=== PATIENT | female | born 1950 | race Caucasian/White ===

== ENCOUNTER → 2016-10-15 | Outpatient (CLI) | payer OTHER, MEDICARE ==
[~2016-10-15] MED LIST: CALC600T37 PO; LEVO100T7 PO; MAGN400T6 PO; MONT1TAB3 PO; OMEP40CA41 PO; PROP40TA5 PO; SERT50TA PO; TRIATAB3 PO
[2016-10-15 18:11] LABS: HEPATITIS B AB NEG
== END | disposition home or self-care (01) ==
LOC: C.LAB1850 16:29
PROVIDERS: ATTEND Nurse Practitioner Family
DX: Z77.21 Contact with and (suspected) exposure to potentially hazardous body fluids (principal); Z20.7 Contact with and (suspected) exposure to pediculosis, acariasis and other infestations

== ENCOUNTER 2016-11-11 17:44 | Emergency (ER) | payer OTHER, MEDICARE ==
[~2016-11-11] VITALS: Ht 154.9 cm; Wt 81.1 kg
[2016-11-11 17:50] VITALS: TEMP 36.5; Ht 154.9 cm; Wt 81.1 kg
[2016-11-11] MEDS ORDERED: SODIUM CHLORIDE 0.9% 1000ML 1,000 ML IV STA (17:54)
[2016-11-11] MEDS ORDERED: PROP40TA5 PO ×2 (18:10)
[2016-11-11] MEDS ORDERED: LEVO100T7 PO (18:10)
[2016-11-11] MEDS ORDERED: CALC600T37 PO (18:10)
[2016-11-11] MEDS ORDERED: MONT1TAB3 PO (18:10)
[2016-11-11] MEDS ORDERED: OMEP40CA41 PO (18:10)
[2016-11-11] MEDS ORDERED: MAGN400T6 PO (18:10)
[2016-11-11] MEDS ORDERED: TRIATAB3 PO (18:10)
[2016-11-11] MEDS ORDERED: SERT50TA PO (18:10)
[2016-11-11 18:17] LABS: BASO % 0.3 %; BASO ABS # 0.03 K/uL (0-0.2); COMPLETE YES; EOS % 2.6 %; IG% 0.3 %; LYMPH % 28.2 %; LYMPH ABS # 2.88 K/uL (1.2-3.4); MEAN CELL VOLUME 91.7 fL (80-100); MEAN CORPUSCULAR HEMOGLOBIN 30.6 pg (25-34); MEAN CORPUSCULAR HGB CONC 33.3 g/dl (32-36); MEAN PLATELET VOLUME 10.3 fL (7.4-10.4); MONO % 5.6 %; PLATELET COUNT 273 K/uL (130-400); RED BLOOD COUNT 4.58 M/uL (4.2-5.4); WHITE BLOOD COUNT 10.23 K/uL (4.8-10.8)
[2016-11-11 18:26] LABS: URINE APPEARANCE CLEAR (CLEAR); URINE BILIRUBIN NEG (NEG); URINE COLOR YELLOW; URINE NITRITE NEG (NEG); URINE SPECIFIC GRAVITY 1.018 (1.000-1.030); UROBILINOGEN NEG (NEG); ZZUR CULT IF INDIC CLEAN CATCH NO
[2016-11-11 18:29] LABS: MANUAL MICROSCOPIC REQUIRED? NO; REVIEW REQ? NO
[2016-11-11 18:34] LABS: ALT/SGPT 32 U/L (12-78); AST/SGOT 19 U/L (15-37); BLOOD UREA NITROGEN 15 mg/dl (7-18); BUN/CREATININE RATIO 17.5 (10-20); CALCIUM 8.8 mg/dl (8.5-10.1); CARBON DIOXIDE 31 mmol/L (21-32); CHLORIDE 103 mmol/L (98-107); CREATININE 0.84 mg/dl (0.60-1.20); GLUCOSE 112 mg/dl (70-99); POTASSIUM 3.8 mmol/L (3.5-5.1); SODIUM 141 mmol/L (136-145)
[2016-11-11 18:37] LABS: ALKALINE PHOSPHATASE 88 U/L (45-117)
[2016-11-11] MEDS ORDERED: OPTIRAY 320 IV PRN (20:00)
--- NOTE | 2016-11-11 20:10 | DIAGNOSTIC IMAGING REPORT ---
ABDOMEN AND PELVIS CT WITH IV CONTRAST CT DOSE: 655.79 mGy.cm HISTORY: LUQ pain, diarrhea TECHNIQUE: Multiaxial CT images of the abdomen and pelvis were performed following the use of intravenous contrast. COMPARISON STUDY: None. FINDINGS: The lung bases are clear. No pneumoperitoneum. No pneumatosis. Small hiatus hernia. Hepatic steatosis. The gallbladder is not identified and is likely surgically absent. The pancreas, spleen, adrenal glands, and kidneys are unremarkable. No hydronephrosis. Normal bladder. The uterus is surgically absent. No bowel wall thickening or obstruction. The appendix is not identified and is likely surgically absent. IMPRESSION: 1. No bowel wall thickening or obstruction. 2. Hepatic steatosis. 3. Postoperative changes as described above. 4. Small hiatus hernia. Electronically signed by: Reji Evans M.D. 11/11/2016 8:09 PM Dictated Date/Time: 11/11/2016 8:04 PM
[2016-11-11 20:39] VITALS: BP 120/65; PULSE 65; O2SAT 98
--- NOTE | 2016-11-11 21:52 | EMERGENCY ROOM VISIT NOTE ---
History Report prepared by Kalee: Brooke Figueroa Under the Supervision of: Dr. Panda Adan M.D. First contact with patient: 17:54 Chief Complaint: ABDOMINAL PAIN Stated Complaint: LEFT ABD PAIN History of Present Illness The patient is a 66 year old female who presents to the Emergency Room with complaints of constant LUQ abdominal pain beginning today. The patient states that she has been having this left sided abdominal pain intermittently over the last few months. She reports that when it started she was feeling nauseous every morning and after following up with her PCP she went to see a waiter/waitress head. She notes that she they have not been able to figure out why she is having pain and she has not had any CT scans or MRI's. She notes that movement, palpation, and deep breathing worsens her pain in the LUQ. No chest pain with these maneuvers. She complains of diarrhea, bloating, nausea, and tiredness. Pt denies LOC, headache, fevers, chills, diaphoresis, visual changes, neck pain, chest pain, vomiting, abdominal pain, back pain, melena, hematochezia, urinary symptoms, numbness, weakness, lymphadenopathy, rash, or other complaints. The patient rates her pain as a 5/10 in severity. She notes a cholecystectomy, hysterectomy, thyroidectomy, and suspected appendectomy. She states that she had a colonoscopy 1 year ago that was normal. Source of History: patient Onset: today Position: abdomen (left) Timing: constant Modifying Factors (Worsening): breathing Review of Systems See HPI for pertinent positives and negatives. A total of ten systems were reviewed and were otherwise negative. Past Medical & Surgical Medical Problems: (1) Bronchitis Surgical Problems: (1) H/O thyroidectomy (2) S/P appendectomy (3) S/P cholecystectomy (4) S/P hysterectomy Family History No pertinent family history stated. Social History Smoking Status: Never Smoker Marital Status: Housing Status: lives with significant other Occupation Status: employed Current/Historical Medications Scheduled Calcium (Calcium), 1,200 MG PO DAILY Levothyroxine Sodium (Levothyroxine Sodium), 100 MCG PO DAILY Magnesium Oxide (Mag-Ox), 800 MG PO DAILY Montelukast Sodium (Singulair), 10 MG PO DAILY Omeprazole (Prilosec), 40 MG PO DAILY Propranolol Hcl (Propranolol Hcl), 40 TAB PO QPM Propranolol Hcl (Propranolol Hcl), 80 MG PO QAM Sertraline (Zoloft), 50 MG PO Q2D Triamterene/Hctz (Triamterene/Hctz 37.5-25MG), 1 TAB PO DAILY Allergies Coded Allergies: No Known Allergies (Unverified , 11/11/16) Physical Exam Vital Signs Date Time Temp Pulse Resp B/P (MAP) Pulse Ox O2 Delivery O2 Flow Rate FiO2 11/11/16 20:39 65 16 120/65 98 11/11/16 20:00 68 16 114/67 98 Room Air 11/11/16 19:38 62 11/11/16 17:50 36.5 60 18 119/74 96 Room Air Physical Exam GENERAL: Awake, alert, well-appearing, in no distress HENT: Normocephalic, atraumatic. Oropharynx unremarkable. EYES: Normal conjunctiva. Sclera non-icteric. NECK: Supple. No nuchal rigidity. FROM. No JVD. RESPIRATORY: Clear to auscultation. CARDIAC: Regular rate, normal rhythm. Extremities warm and well perfused. Pulses equal. ABDOMEN: Soft, non-distended. No tenderness to palpation. No rebound or guarding. No masses. RECTAL: Deferred. MUSCULOSKELETAL: Chest examination reveals no tenderness. The back is symmetrical on inspection without obvious abnormality. There is no CVA tenderness to palpation. No joint edema. LUQ tenderness. LOWER EXTREMITIES: Calves are equal size bilaterally and non-tender. No edema. No discoloration. NEURO: Normal sensorium. No sensory or motor deficits noted. SKIN: No rash or jaundice noted. Medical Decision & Procedures ER Provider Diagnostic Interpretation: Radiology results as stated below per my review and radiologist interpretation: ABDOMEN AND PELVIS CT WITH IV CONTRAST FINDINGS: The lung bases are clear. No pneumoperitoneum. No pneumatosis. Small hiatus hernia. Hepatic steatosis. The gallbladder is not identified and is likely surgically absent. The pancreas, spleen, adrenal glands, and kidneys are unremarkable. No hydronephrosis. Normal bladder. The uterus is surgically absent. No bowel wall thickening or obstruction. The appendix is not identified and is likely surgically absent. IMPRESSION: 1. No bowel wall thickening or obstruction. 2. Hepatic steatosis. 3. Postoperative changes as described above. 4. Small hiatus hernia. Electronically signed by: Reji Evans M.D. 11/11/2016 8:09 PM Dictated Date/Time: 11/11/2016 8:04 PM Laboratory Results 11/11/16 18:10 Red Blood Count 4.58, Mean Corpuscular Volume 91.7, Mean Corpuscular Hemoglobin 30.6, Mean Corpuscular Hemoglobin Concent 33.3, Mean Platelet Volume 10.3, Neutrophils (%) (Auto) 63.0, Lymphocytes (%) (Auto) 28.2, Monocytes (%) (Auto) 5.6, Eosinophils (%) (Auto) 2.6, Basophils (%) (Auto) 0.3, Neutrophils # (Auto) 6.45, Lymphocytes # (Auto) 2.88, Monocytes # (Auto) 0.57, Eosinophils # (Auto) 0.27, Basophils # (Auto) 0.03 11/11/16 18:10 Test 11/11/16 18:00 11/11/16 18:10 Urine Color YELLOW Urine Appearance CLEAR (CLEAR) Urine pH 6.0 (4.5-7.5) Urine Specific [place]ham 1.018 (1.000-1.030) Urine Protein NEG (NEG) Urine Glucose (UA) NEG (NEG) Urine Ketones NEG (NEG) Urine Occult Blood NEG (NEG) Urine Nitrite NEG (NEG) Urine Bilirubin NEG (NEG) Urine Urobilinogen NEG (NEG) Urine Leukocyte Esterase NEG (NEG) White Blood Count 10.23 K/uL (4.8-10.8) Red Blood Count 4.58 M/uL (4.2-5.4) Hemoglobin 14.0 g/dL (12.0-16.0) Hematocrit 42.0 % (37-47) Mean Corpuscular Volume 91.7 fL (80-100) Mean Corpuscular Hemoglobin 30.6 pg (25-34) Mean Corpuscular Hemoglobin Concent 33.3 g/dl (32-36) Platelet Count 273 K/uL (130-400) Mean Platelet Volume 10.3 fL (7.4-10.4) Neutrophils (%) (Auto) 63.0 % Lymphocytes (%) (Auto) 28.2 % Monocytes (%) (Auto) 5.6 % Eosinophils (%) (Auto) 2.6 % Basophils (%) (Auto) 0.3 % Neutrophils # (Auto) 6.45 K/uL (1.4-6.5) Lymphocytes # (Auto) 2.88 K/uL (1.2-3.4) Monocytes # (Auto) 0.57 K/uL (0.11-0.59) Eosinophils # (Auto) 0.27 K/uL (0-0.5) Basophils # (Auto) 0.03 K/uL (0-0.2) RDW Standard Deviation 43.4 fL (36.4-46.3) RDW Coefficient of Variation 13.0 % (11.5-14.5) Immature Granulocyte % (Auto) 0.3 % Immature Granulocyte # (Auto) 0.03 K/uL (0.00-0.02) Anion Gap 7.0 mmol/L (3-11) Est Creatinine Clear Calc Drug Dose 64.4 ml/min Estimated GFR () 84.5 Estimated GFR (Non- 72.9 BUN/Creatinine Ratio 17.5 (10-20) Calcium Level 8.8 mg/dl (8.5-10.1) Total Bilirubin 0.4 mg/dl (0.2-1) Direct Bilirubin < 0.1 mg/dl (0-0.2) Aspartate Amino Transf (AST/SGOT) 19 U/L (15-37) Alanine Aminotransferase (ALT/SGPT) 32 U/L (12-78) Alkaline Phosphatase 88 U/L (45-117) Total Protein 8.1 gm/dl (6.4-8.2) Albumin 3.4 gm/dl (3.4-5.0) Lipase 263 U/L (73-393) Laboratory results reviewed by me Medications Administered Medications (Trade) Dose Ordered Sig/Diana Route Start Time Stop Time Status Last Admin Dose Admin Sodium Chloride 1,000 ml @ 125 mls/hr Q8H STAT IV 11/11/16 17:54 11/11/16 20:46 DC 11/11/16 17:54 125 MLS/HR ED Course 1751: The patient was evaluated in room C3. A complete history and physical exam was performed. 1753: Sodium Chloride 1000 ml @ 125 mls/hr IV. 1919: I reevaluated the patient. She is doing well. 2020: I reevaluated and updated the patient. 2028: I reevaluated the patient. Discussed results and discharge instructions: She verbalized understanding and agreement. The patient is ready for discharge. Medical Decision Medication Reconciliation: I attest that I have personally reviewed the patient' s current medication list Blood pressure screening: Patient was found to have normal blood pressure on screening and does not require follow-up. Triage Nursing notes reviewed. The patient's presentation and history were concerning for abdominal pain Etiologies such as diverticulitis, obstruction, inflammatory bowel disease, renal colic, PUD, biliary pathology, pancreatitis, mesenteric ischemia, aortic pathology, infections, genitourinary, UTI, perforated viscus, appendicitis, pulmonary sources, cardiac sources, as well as others were entertained. The patient was evaluated. She declined analgesia. Her chest examination was unremarkable. She had tenderness that was easily reproducible in the left upper quadrant of her abdomen. She did not have costal margin tenderness. The patient underwent blood work and imaging. Her CBC, chemistry panel, LFTs, lipase, and urinalysis were normal. The patient had an unremarkable CT scan of the abdomen and pelvis with IV contrast. There is no obvious cause for the patient's pain. It may be musculoskeletal. She does not have any chest or cardiac symptoms. She has had this for many months. She has seen gastroenterology but they have not done a colonoscopy since this pain initiated. She did have some diarrhea. I did discuss contacting her waiter/waitress head again did discuss that issue. She has a pending appointment with her new primary physician at [facility]. She will need close follow-up. If she worsens in any way she will come back. The patient did decline any prescription management here. I gave my usual and customary discussion regarding this issue. By the evaluation outlined above other emergent etiologies such as those listed in the differential, as well as others, were deemed relatively unlikely. The patient was educated about the findings as listed above. All questions were answered and the patient was pleased with the treatment. Return instructions were outlined and the patient was discharged in stable condition. The patient was referred to her GI and PCP for follow-up for a recheck of the current condition. Impression Primary Impression: LUQ abdominal pain Scribe Attestation The scribe's documentation has been prepared under my direction and personally reviewed by me in its entirety. I confirm that the note above accurately reflects all work, treatment, procedures, and medical decision making performed by me. Departure Information Dispostion Home / Self-Care Referrals No Doctor, Assigned (PCP) Forms HOME CARE DOCUMENTATION FORM, IMPORTANT VISIT INFORMATION Patient Instructions My [facility] Additional Instructions ABDOMINAL PAIN INSTRUCTIONS: Ibuprofen(Motrin, Advil) may be used for fever or pain. Use 600mg every six hours as needed. Take with food. Avoid using more than 2400mg in a 24 hour period. Do not use 2400mg per day for more than three consecutive days without physician direction. Prolonged inappropriate use can lead to stomach upset or ulcers. (AND/OR) Acetaminophen(Tylenol) may be used for fever or pain. Use 1000mg every six hours as needed. Avoid using more than 4000mg in a 24 hour period. Rest and drink plenty of fluids as tolerated. Slow sips of water or sports drinks are recommended instead of large amounts all at once. Continue current medications. Once your stomach is settled start with a clear liquid diet (jello, soup broth, etc.) and then advance as tolerated. You should avoid full, heavy meals for about 24 hrs from the time your symptoms resolved. Return to the ER immediately for worsening or persistent abdominal pain, vomiting, fevers, chest pains, difficulty breathing, black or bloody stools, worsening of your condition, or as needed. Follow up with your primary physician in 2-3 days for a recheck of your current condition.
== END 2016-11-11 20:39 | disposition home or self-care (01) ==
LOC: C.EDB 17:45 → C.EDC 20:39
DX: R10.12 Left upper quadrant pain (principal)

== ENCOUNTER → 2016-12-14 | Outpatient (CLI) | payer OTHER, MEDICARE ==
--- NOTE | 2016-12-14 08:15 | DIAGNOSTIC IMAGING REPORT ---
THYROID ULTRASOUND HISTORY: None Fatigue, hx OF THYROID NODULE COMPARISON: None. FINDINGS: Right lobe: Maximum dimension 3.0 cm. Heterogeneous internal architecture. No significant nodularity. Left lobe: Prior left thyroidectomy. Small benign-appearing left-sided lymph node measuring 1.5 x 0.7 cm. Isthmus: Negative IMPRESSION: Negative study status post left thyroidectomy Electronically signed by: Geremias Srinivasan M.D. 12/14/2016 8:14 AM Dictated Date/Time: 12/14/2016 8:11 AM
== END | disposition home or self-care (01) ==
LOC: C.ULTR 07:43
PROVIDERS: ATTEND Family Medicine
DX: R53.83 Other fatigue (principal); E04.1 Nontoxic single thyroid nodule

== ENCOUNTER → 2017-04-18 | Outpatient (CLI) | payer OTHER, MEDICARE ==
[~2017-04-18] MED LIST changes: +OPTIRAY 320 IV PRN
--- NOTE | 2017-04-18 10:05 | DIAGNOSTIC IMAGING REPORT ---
THORACIC SPINE 3 VIEWS ROUTINE HISTORY: Pain AB PAIN COMPARISON: None. FINDINGS: Moderate scoliosis. Moderate degenerative disc changes throughout. Moderate sclerosis vertebral endplates with moderate anterior osteophytic formation. No evidence for compression deformity. IMPRESSION: Degenerative change. Mild scoliosis. No acute process. The above report was generated using voice recognition software. It may contain grammatical, syntax or spelling errors. Electronically signed by: Geremias Srinivasan M.D. 04/18/2017 10:04 AM Dictated Date/Time: 04/18/2017 10:03 AM
--- NOTE | 2017-04-18 10:05 | DIAGNOSTIC IMAGING REPORT ---
ABD WITH IV CONTRAST ONLY (CT) HISTORY: 67 years-old Female presents with acute left upper quadrant abdominal pain. History of prior appendectomy and cholecystectomy COMPARISON: CT 11/11/2016 TECHNIQUE: Multiple axial CT images of the abdomen were obtained following the intravenous administration of 92 mL Optiray 320. A dose lowering technique was used consistent with the principals of ARANZA. FINDINGS: Mild linear subsegmental bibasilar opacities suggest atelectasis or scarring. Unchanged pleural-based 3 mm nodule of the lateral basal segment left lower lobe is likely benign. No pneumoperitoneum. Image inferior cardiac chambers demonstrate no acute abnormality. Coronary arterial calcifications are present. There is suggested fatty infiltration of the liver. Spleen is upper limits of normal at 12.5 cm. Pancreas and right adrenal gland are unremarkable. There is mild thickening of the left adrenal gland again seen suggesting hyperplasia. Prior cholecystectomy. No intrahepatic biliary ductal dilation. Mild multifocal cortical scarring of the left kidney. 4 mm low attenuating lesion of the superior pole left kidney is too small to characterize however suggests a renal cyst. No renal calculi or hydronephrosis. Moderate mixed plaquing of the abdominal aorta without aneurysm. No bulky adenopathy. There is no bowel obstruction or focal bowel wall thickening. Small sliding-type hiatal hernia. Soft tissues are unremarkable. Bones appear intact. Bones are mildly demineralized. Advanced facet arthrosis of the lower lumbar spine is noted. IMPRESSION: 1. No acute intra-abdominal abnormality identified. No bowel obstruction. 2. Prior cholecystectomy. 3. Small sliding-type hiatal hernia. The above report was generated using voice recognition software. It may contain grammatical, syntax or spelling errors. Electronically signed by: Erik Isaacs M.D. 04/18/2017 10:04 AM Dictated Date/Time: 04/18/2017 9:51 AM
== END | disposition home or self-care (01) ==
LOC: C.CTS 09:03
PROVIDERS: ATTEND Internal Medicine Gastroenterology
DX: R10.12 Left upper quadrant pain (principal); K44.9 Diaphragmatic hernia without obstruction or gangrene; Z90.49 Acquired absence of other specified parts of digestive tract; M41.9 Scoliosis, unspecified

== ENCOUNTER 2019-12-10 21:03 | Inpatient (IN) ==
--- OUTSIDE RECORDS SUMMARY | 2019-12-10 21:06 | External Medical Summary | Continuity of Care Document ---
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 Refills: 0 Singulair 10 MG Oral Tablet; TAKE 1 TABLET DAILY DIRECTED . Refills: 0 Calcium 600 MG Oral Tablet; Take 2 tablets daily Refills: 0 Triamterene-HCTZ 37.5-25 MG Oral Tablet; TAKE 1 TABLET DAILY . Refills: 0 PriLOSEC 40 MG CPDR; TAKE 1 CAPSULE DAILY. Refills: 0 Levoxyl 100 MCG Oral Tablet; TAKE 1 TABLET DAILY. Refills: 0 Propranolol HCl - 40 MG Oral Tablet; daily Start: 13-Feb-2017 Refills: 0 Magnesium Oxide 400 MG Oral Tablet; TAKE 1 TABLET TWICE VEL Y. Start: 13-Feb-2017 Refills: 0 Procedures History of thyroid surgery Status: Compl eted History of hysterectomy Status: Complete d History of gallbladder surgery Status: C ompleted History of appendectomy Status: Complete d Immunizations Immunizations not documented Family History Sister Family history of malignant neoplasm of breast (V16.3) (Z80. 3) Status: Active Social History - Smoking Status Never smoked tobacco Plan of Treatment Planned Observations Planned Goals not documented Results No Known Results Results not documented Encounters Appointment; Med SC5, Nursing Station 19-May-2018 7:15 Encounter Diagnosis: Problem not documented
--- OUTSIDE RECORDS SUMMARY | 2019-12-10 21:07 | External Medical Summary | Continuity of Care Document ---
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
[2019-12-10] MEDS ORDERED: ONDANSETRON INJ 2 MG/ML 2 ML VIAL IV STA (21:20)
--- NOTE | 2019-12-10 21:24 | Emergency Department Note ---
Impression & Plan Closed fracture of right hip, Contusion of right shoulder, Fall ED Provider Note NAME: CHARO VALDEZ AGE: 69 SEX: F : 1950 ARRIVES VIA: Walk-In INFORMANT: [Patient] ED PROVIDER(S): [Aman Clemente MD] CHIEF COMPLAINT: Right hip pain, right shoulder pain HISTORY OF PRESENT ILLNESS: The patient is a 69-year-old female who states that just about an hour ago she was pulled down by her dog onto her right side. She has severe pain in the right hip and cannot walk on the right leg. She also has some mild pain in the area of the right lateral shoulder. There was no loss of consciousness. She did not strike her head. There is no headache or neck pain or chest pain. No shortness of breath or abdominal pain. The patient has been in baseline health. She has not had recent fevers, chills, congestion. She is very concerned her hip is broken. She states it hurts to extend her hip. She feels better with the hip flexed. REVIEW OF SYSTEMS: See HPI for pertinent positives and negatives. A total of ten systems were reviewed and were otherwise negative. PMHx/PSHx: See Below SOCIAL HISTORY: See Below. PHYSICAL EXAM: GENERAL: Patient is in moderate distress from pain. HEENT: No acute trauma, normocephalic atraumatic, mucous membranes moist, no nasal congestion, no scleral icterus. NECK: No stridor, no adenopathy, no meningismus, trachea is midline. LUNGS: Clear to auscultation bilaterally, no wheeze, no rhonchi, breath sounds equal. HEART: Without murmurs gallops or rubs, regular rate and rhythm. ABDOMEN: Soft, nontender, bowel sounds positive, no hernias, no peritonitis. EXTREMITIES: The right shoulder does not appear to be dislocated. She is tender over the anterior aspect of the right shoulder. No significant pain to move the shoulder joint. The right elbow has an abrasion posteriorly but there is no joint effusion, no pain to move the right elbow joint. There is no evidence for right upper extremity neurovascular compromise. Patient has her right hip flexed. She is painful to palpate the lateral aspect of the hip. There is pain to move the right hip. There is no gross deformity clinically. No evidence for neurovascular compromise in the right lower extremity. NEUROLOGIC: Oriented x 3, no acute motor or sensory deficits, no focal weakness. SKIN: No rash, no jaundice, no diaphoresis. DIFFERENTIAL DIAGNOSIS: Muscular strain, fracture, dislocation, DVT, joint effusion, infection, soft tissue injury, vascular compromise, as well as other pathologies. EMERGENCY DEPARTMENT COURSE/PROCEDURES: ECG: Indication was hip fracture. The EKG shows a normal sinus rhythm with a rate of 75. There is no acute ischemia. No ST elevation or PVCs. The QTc is 435 Continuous Cardiac Monitoring: An order was placed for continuous cardiac monitoring. The monitor shows a rate of 74 with normal sinus rhythm. MEDICAL DECISION MAKING: There is no leukocytosis or concerning anemia. There is no coagulopathy. No significant electrolyte abnormality or kidney failure. Right shoulder film does not show any evidence for dislocation or fracture. Right hip and pelvis films show a subcapital right hip fracture, no pelvis fracture. ECG shows a sinus rhythm, no acute ischemia. On exam, the patient did not have any evidence for right lower extremity neurovascular compromise. Patient received IV morphine for pain, IV Zofran for nausea, she is currently resting comfortably. I did speak to orthopedics. The patient will be seen by them in the morning. I spoke to the patient and case management. Hospitalization is warranted. The on-call hospitalist has been consulted. Of note, I suspect the right shoulder is contused. Clinically, there is no evidence for injury to the head, neck, chest or abdomen. Past Med/Surg History Medical History Hypothyroid Surgical History S/P appendectomy (Resolved) Social History Preferred Language: Stateless Feels Safe at Home: Yes Smoking Status: Never smoker Allergies Allergies Allergy/AdvReac Type Severity Reaction Status Date / Time No Known Allergies Allergy Verified 12/10/19 21:36 Home Meds Home Medications Medication Instructions Recorded Confirmed calcium carbonate-vitamin D3 2 tab PO DAILY 12/10/19 12/10/19 [Calcium 600 + D(3)] levothyroxine 100 mcg PO DAILY 12/10/19 12/10/19 magnesium oxide 800 mg PO DAILY 12/10/19 12/10/19 omeprazole 40 mg PO DAILY 12/10/19 12/10/19 propranolol See Rx Instructions .ROUTE .COMPLEX 12/10/19 12/10/19 sertraline 50 mg PO Q OTHER DAY 12/10/19 12/10/19 triamterene-hydrochlorothiazid 1 tab PO DAILY 12/10/19 12/10/19 zonisamide 50 mg PO HS 12/10/19 12/10/19 Results & Data (ED) Vital Signs Vital Signs - 24 hr 12/10/19 21:15 12/10/19 23:00 Temperature 36.7 C Temperature Source Oral Pulse Rate 75 Pulse Rate [Finger] 74 Pulse Rhythm [Finger] Regular Pulse Strength [Finger] Normal Respiratory Rate 16 20 Respiratory Effort / Characteristics Non-Labored Spontaneous Respiratory Depth Normal Respiratory Pattern Regular Blood Pressure 132/74 Blood Pressure [Left Arm] 123/64 Blood Pressure Mean 93 Blood Pressure Mean [Left Arm] 83 Blood Pressure Position [Left Arm] Lying Pulse Oximetry 95 91 Oxygen Delivery Method Room Air Room Air Sepsis Recent Fever Within 48 Hours No Sepsis New/Unexplained Change in Mental Status No Sepsis Action Taken by Nursing No Action Required Home Medications Current Medication List: was personally reviewed by me Laboratory Data Attestation: I reviewed the patient's lab results. Result diagrams: 12/10/19 21:25 12/10/19 21:25 Lab Results 12/10/19 12/10/19 12/10/19 Range/Units 21:25 21:25 21:25 WBC 9.58 (4.8-10.8) K/uL RBC 4.34 (4.2-5.4) M/uL Hgb 13.3 (12.0-16.0) g/dL Hct 39.1 (37-47) % MCV 90.1 (80-100) fL MCH 30.6 (25-34) pg MCHC 34.0 (32-36) g/dL RDW Std Deviation 41.8 (36.4-46.3) fL RDW Coeff of Remi 12.7 (11.5-14.5) % Plt Count 250 (130-400) K/uL MPV 10.6 H (7.4-10.4) fL Immature Gran % (Auto) 0.3 % Neut % (Auto) 66.0 % Lymph % (Auto) 26.1 % [place] % (Auto) 5.4 % Eos % (Auto) 1.7 % Baso % (Auto) 0.5 % Neut # (Auto) 6.32 (1.4-6.5) K/uL Lymph # (Auto) 2.50 (1.2-3.4) K/uL [place] # (Auto) 0.52 (0.11-0.59) K/uL Eos # (Auto) 0.16 (0-0.5) K/uL Baso # (Auto) 0.05 (0-0.2) K/uL Immature Gran # (Auto) 0.03 H (0.00-0.02) K/uL PT 10.6 (9.0-12.0) Seconds INR 1.0 (0.9-1.1) APTT 28.2 (21.0-31.0) Seconds PTT Ratio 1.0 Sodium 140 (136-145) mmol/L Potassium 3.5 (3.5-5.1) mmol/L Chloride 106 (98-107) mmol/L Carbon Dioxide 27 (21-32) mmol/L Anion Gap 6.0 (3-11) BUN 24 H (7-18) mg/dl Creatinine 1.03 (0.6-1.2) mg/dl Est Cr Clr Drug Dosing 49.4 ml/min Est GFR ( Amer) 64.7 Est GFR (Non-Af Amer) 55.8 BUN/Creatinine Ratio 23.4 H (10-20) Glucose 130 H (70-99) mg/dl Calcium 9.4 (8.5-10.1) mg/dl Administered Medications Morphine Sulfate (Morphine Sulfate) 4 mg IV Q30M PRN PRN Reason: Severe Pain (Rating 7,8,9,10) Stop: 12/24/19 21:17 Last Admin: 12/10/19 22:10 Dose: 4 mg Documented by: [id number] Admin: 12/10/19 21:31 Dose: 4 mg Documented by: [id number] Discontinued Medications Ondansetron HCl (Zofran) 4 mg IV NOW STA Stop: 12/10/19 21:21 Last Admin: 12/10/19 21:31 Dose: 4 mg Documented by: [id number] Imaging Data Attestation: I personally reviewed and interpreted this imaging study as foll ows: My Impression: Right shoulder film: There is no fracture or dislocation by my reading. Right hip and pelvis film: There is a subcapital right hip fracture. No pelvis fracture. No hip dislocation. Blood Pressure Blood Pressure Findings: Elevated blood pressure Blood Pressure Disposition: further management by hospitalist Head Trauma GCS Score: 15 Discharge Plan Visit Data Chief Complaint: Fall Stated Complaint: FALL, MAY HAVE BROKEN HIP ED Provider: Aman Clemente Discharge Problem: Closed fracture of right hip, Contusion of right shoulder, Fall Patient Disposition: Admitted As Inpatient Condition: Good Forms Stand Alone Forms: My [facility] [employer] Prescriptions Prescriptions: No Action omeprazole 40 mg Capsule,Delayed Release(Dr/Ec) 40 mg PO DAILY RF: 0 levothyroxine 100 mcg Tablet 100 mcg PO DAILY RF: 0 propranolol 40 mg Tablet See Rx Instructions .ROUTE .COMPLEX RF: 0 sertraline 25 mg Tablet 50 mg PO Q OTHER DAY RF: 0 triamterene-hydrochlorothiazid 37.5-25 mg Tablet 1 tab PO DAILY RF: 0 zonisamide 25 mg Capsule 50 mg PO HS RF: 0 calcium carbonate-vitamin D3 [Calcium 600 + D(3)] 600 mg(1,500mg) -400 unit Tablet 2 tab PO DAILY RF: 0 magnesium oxide 400 mg magnesium Tablet 800 mg PO DAILY RF: 0 Referrals Referrals: Steven Way [Primary Care Provider] - Discharge Problem: Closed fracture of right hip Qualifiers: Encounter type: initial encounter Qualified Code(s): S72.001A - Fracture of unspecified part of neck of right femur, initial encounter for closed fracture Contusion of right shoulder Qualifiers: Encounter type: initial encounter Qualified Code(s): S40.011A - Contusion of right shoulder, initial encounter Fall Qualifiers: Encounter type: initial encounter Qualified Code(s): W19.XXXA - Unspecified fall, initial encounter
[2019-12-10] MEDS: MoRPHine SULFATE 4 MG/ML 1 ML CARP\\VIAL IV PRN ×3 (21:31→23:28)
[2019-12-10 21:36] LABS: Basophils # (auto) 0.05 K/uL (0-0.2); Basophils % (auto) 0.5 %; Eosinophils # (auto) 0.16 K/uL (0-0.5); Eosinophils % (auto) 1.7 %; Hematocrit (blood only) 39.1 % (37-47); Hemoglobin 13.3 g/dL (12.0-16.0); Immature Granulocytes # (auto) 0.03 K/uL (0.00-0.02); Immature Granulocytes % (auto) 0.3 %; Lymphocytes % (auto) 26.1 %; Mean Corpuscular Hemoglobin 30.6 pg (25-34); Mean Corpuscular Volume 90.1 fL (80-100); Mean Platelet Volume 10.6 fL (7.4-10.4); Monocytes # (auto) 0.52 K/uL (0.11-0.59); Monocytes % (auto) 5.4 %; Neutrophils # (auto) 6.32 K/uL (1.4-6.5); Platelet Count 250 K/uL (130-400); RDW Coefficient of Variation 12.7 % (11.5-14.5); RDW Standard Deviation 41.8 fL (36.4-46.3); Red Blood Count 4.34 M/uL (4.2-5.4); White Blood Count 9.58 K/uL (4.8-10.8)
[2019-12-10 21:47] LABS: Partial Thromboplastin Time 28.2 Seconds (21.0-31.0); Prothrombin Time 10.6 Seconds (9.0-12.0)
[2019-12-10 21:51] LABS: BUN Creatinine Ratio 23.4 (10-20); Calcium 9.4 mg/dl (8.5-10.1); Creatinine Clr Calc Pharmacy 49.4 ml/min; Est GFR (African American) 64.7; Est GFR (Non-African American) 55.8; Potassium 3.5 mmol/L (3.5-5.1)
[2019-12-10] MEDS ORDERED: BACLOFEN 10 MG TAB PO ONE (23:35)
[2019-12-10] MEDS: BACLOFEN 10 MG TAB PO SCH (23:40)
--- NOTE | 2019-12-10 23:43 | History & Physical Report ---
Date of Service December 10, 2019 Assessment & Plan (1) Closed fracture of right hip: - NPO at midnight - pain control regimen: - 650 mg Tylenol PO HIMANSHU - 2 mg Morphine IV Q2H PRN mod/severe pain - 5 mg Roxicodone IR PO Q4H PRN mod/severe pain - Zofran for nausea - Baclofen 10 mg BID for muscle spasms - bowel regimen with milk of magnesia, senna, docusate, miralax - follows with [facility] in [place]; Dr. Dent for [facility] Ortho consulted DVT ppx: lovenox FEN/GI: NPO at [place], LR at [facility] Dispo: Med/Surg Code Status: Full Code History of Present Illness 69-year-old otherwise healthy female who presents the emergency department today after having fallen at home. She was trying to edd down her [place] dog who weighs 130 pounds and states that "the [place] won". She tripped and landed on her right hip in the grass and upon trying to move and get up immediately had sharp stabbing pain in the right hip and was unable to get up from there. She denies any distal numbness or tingling describes all of the pain as being lo cated in the right inguinal region. She says that she lays still and does not move the pain is manageable however as soon as she tries to move her thyroid and portion of her legs the pain returns. She denies any nausea or vomiting and says her pain is currently well controlled having gotten 4 mg of morphine IV. Primary Care Provider: Steven Way Allergies Allergy/AdvReac Type Severity Reaction Status Date / Time No Known Allergies Allergy Verified 12/10/19 21:36 Home Medications Home Medications Medication Instructions Recorded Confirmed Type calcium carbonate-vitamin D3 2 tab PO DAILY 12/10/19 12/10/19 History [Calcium 600 + D(3)] levothyroxine 100 mcg PO DAILY 12/10/19 12/10/19 History magnesium oxide 800 mg PO DAILY 12/10/19 12/10/19 History omeprazole 40 mg PO DAILY 12/10/19 12/10/19 History propranolol See Rx Instructions .ROUTE .COMPLEX 12/10/19 12/10/19 History sertraline 50 mg PO Q OTHER DAY 12/10/19 12/10/19 History triamterene-hydrochlorothiazid 1 tab PO DAILY 12/10/19 12/10/19 History zonisamide 50 mg PO HS 12/10/19 12/10/19 History Past Med/Surg History Medical History (Updated 12/11/19 @ 14:22 by Rachael Ward PA-C) GERD (gastroesophageal reflux disease) HTN (hypertension) Hypothyroid Surgical History (Updated 12/11/19 @ 10:23 by Moses Pham MD) H/O thyroidectomy (Resolved) S/P appendectomy (Resolved) S/P cholecystectomy (Resolved) S/P hysterectomy (Resolved) Social History Preferred Language: Mauritanian Communication Ability: Effective Beliefs That Will Affect Care: None marital status: Current Living Situation: Spouse Other Information That Helps Us Care for You: No Feels Safe at Home: Yes Safety Concerns: Feels Safe At This Time Smoking Status: Never smoker Hx Alcohol Use: No Hx Substance Use: No Review of Systems Constitutional: no fever, no chills, no body aches and no fatigue Respiratory: no cough and no dyspnea Cardiovascular: no chest pain, no dyspnea and no edema Gastrointestinal: no abdominal pain, no nausea, no vomiting, no constipation, no diarrhea/loose stools and no fecal incontinence Genitourinary: no dysuria and no urinary incontinence Musculoskeletal: + joint pain and + limited range of motion; no back pain, no deformity and no swelling Neurologic: no localized weakness, no generalized weakness, no loss of sensation, no tingling, no numbness and no radiating pain Physical Exam Constitutional: cooperative; no acute distress and not ill appearing Neck: normal visual inspection Respiratory: normal respiratory effort and able to speak in complete sentences; no respiratory distress, no labored breathing, no retractions, no cough and no audible wheezes Auscultation: lungs clear to auscultation bilaterally; no crackles, no rales, no rhonchi and no wheezes Cardiovascular: Rate/Rhythm: regular rate and regular rhythm Heart Sounds: normal S1 and normal S2; no gallop, no murmur and no cardiac rub Vessels: posterior tibial pulses present Extremities: no pedal edema and no edema Gastrointestinal (Abdomen): Inspection/Auscultation: abdomen normal to inspection and normal bowel sounds; abdomen not distended Percus wiley/Palpation: abdomen soft; abdomen nontender, no guarding, abdomen not rigid and no abdominal mass Musculoskeletal: Hip: no deformity and no ecchymosis mildly tender to palpation of lateral right thigh, no overlying ecchymoses or skin breaks, no obvious deformity, 2+ PT and DP pulses, no pallor of skin, able to dorsiflex and plantarflex ankle without pain or restriction Results & Data Results & Data ([facility]) Vital Signs (Past 12 Hours) Vital Signs Temp Pulse Pulse Resp BP BP Pulse Ox 12/10/19 23:00 74 20 123/64 91 12/10/19 21:15 36.7 C 75 16 132/74 95 Laboratory Results WBC 9.58 K/uL (4.8-10.8) 12/10/19 21:25 RBC 4.34 M/uL (4.2-5.4) 12/10/19 21:25 Hgb 13.3 g/dL (12.0-16.0) 12/10/19 21:25 Hct 39.1 % (37-47) 12/10/19 21:25 MCV 90.1 fL (80-100) 12/10/19 21:25 MCH 30.6 pg (25-34) 12/10/19 21:25 MCHC 34.0 g/dL (32-36) 12/10/19 21:25 RDW Std Deviation 41.8 fL (36.4-46.3) 12/10/19 21:25 RDW Coeff of Remi 12.7 % (11.5-14.5) 12/10/19 21:25 Plt Count 250 K/uL (130-400) 12/10/19 21:25 MPV 10.6 fL (7.4-10.4) H 12/10/19 21:25 Immature Gran % (Auto) 0.3 % 12/10/19 21:25 Neut % (Auto) 66.0 % 12/10/19 21:25 Lymph % (Auto) 26.1 % 12/10/19 21:25 [place] % (Auto) 5.4 % 12/10/19 21:25 Eos % (Auto) 1.7 % 12/10/19:25 Baso % (Auto) 0.5 % 07/02/20 21:25 Neut # (Auto) 6.32 K/uL (1.4-6.5) 12/10/19 21:25 Lymph # (Auto) 2.50 K/uL (1.2-3.4) 12/10/19 21:25 [place] # (Auto) 0.52 K/uL (0.11-0.59) 12/10/19 21:25 Eos # (Auto) 0.16 K/uL (0-0.5) 12/10/19 21:25 Baso # (Auto) 0.05 K/uL (0-0.2) 12/10/19 21:25 Immature Gran # (Auto) 0.03 K/uL (0.00-0.02) H 12/10/19 21:25 PT 10.6 Seconds (9.0-12.0) 12/10/19: INR 1.0 (0.9-1.1) 12/10/19: APTT 28.2 Seconds (21.0-31.0) 12/10/19: PTT Ratio 1.0 12/10/19 21:25 Sodium 140 mmol/L (136-145) 12/10/19 21:25 Potassium 3.5 mmol/L (3.5-5.1) 12/10/19 21: Chloride 106 mmol/L (98-107) 12/10/19 21: Carbon Dioxide 27 mmol/L (21-32) 12/10/19 21:25 Anion Gap 6.0 (3-11) 12/10/19 21:25 BUN 24 mg/dl (7-18) H 12/10/19 21: Creatinine 1.03 mg/dl (0.6-1.2) 12/10/19 21:25 Est Cr Clr Drug Dosing 49.4 ml/min 12/10/19 21:25 Est GFR ( Amer) 64.7 12/10/19 21:25 Est GFR (Non-Af Amer) 55.8 12/10/19 21:25 BUN/Creatinine Ratio 23.4 (10-20) H 12/10/19 21:25 Glucose 130 mg/dl (70-99) H 12/10/19 21:25 Calcium 9.4 mg/dl (8.5-10.1) 12/10/19 21:25 Supervising Physician Co-Signing Physician Notes Attending addendum: I have physically seen this patient, have supervised the medical residents activities, and agree with the H&P unless as otherwise noted. Assessment and Plan: Closed right hip fracture- N.p.o. after midnight Acetaminophen 650 mg p.o. PRN mild pain or temperature Roxicodone IR 5 mg p.o. every 4 hours PRN moderate pain Morphine sulfate 2 mg IV every 2 hours as needed severe pain Zofran 4 mg IV every 6 hours PRN Famotidine 20 mg IV every 12 hours Baclofen 10 mg p.o. 3 times daily as needed muscle spasm Outpatient routine orthopedic care with [facility] in [place]. Consult [facility]. Remainder of orders and notations as noted. Resident Activity Tracking Resident Involvement: Resident Care Provided Care Provided: Adult Hospital Medicine (1) Closed fracture of right hip Encounter type: initial encounter Qualified Code(s): S72.001A - Fracture of unspecified part of neck of right femur, initial encounter for closed fracture
[2019-12-11] MEDS ORDERED: MoRPHine SULFATE 2 MG/ML CARP IV PRN (00:18)
[2019-12-11] MEDS ORDERED: OXYCODONE HCL IR 5 MG TAB (IMMEDIATE RELEASE) PO PRN (00:18)
[2019-12-11] MEDS ORDERED: MAGNESIUM HYDROXIDE SUSP 30 ML UDC PO PRN (00:18)
[2019-12-11] MEDS ORDERED: bisacodyL 10 MG SUPP PR PRN (00:18)
[2019-12-11] MEDS ORDERED: NALOXONE HCL 0.4 MG/1 ML VIAL/CARP IV PRN ×2 (00:18→14:49)
[2019-12-11] MEDS: ACETAMINOPHEN 325 MG TAB PO SCH ×3 (00:37→11:27)
[2019-12-11] MEDS: LACTATED RINGER'S 1,000 ML IV SCH ×4 (00:37→22:29)
[2019-12-11] MEDS: LEVOTHYROXINE SODIUM 100 MCG TABLET PO SCH (05:37)
[2019-12-11] MEDS ORDERED: CEFAZOLIN 2000MG 2,000 MG/15 ML SYR IV SCH (06:00)
[2019-12-11 06:39] LABS: Albumin Level 3.1 gm/dl (3.4-5.0); BUN Creatinine Ratio 23.5 (10-20); Calcium 8.8 mg/dl (8.5-10.1); Creatinine Clr Calc Pharmacy 51.5 ml/min; Est GFR (African American) 67.9; Est GFR (Non-African American) 58.6
[2019-12-11 06:42] LABS: Albumin Globulin Ratio 0.8 (0.9-2); Bilirubin,Total 0.5 mg/dl (0.2-1); Globulin 4.1 gm/dl (2.5-4.0); Total Protein 7.2 gm/dl (6.4-8.2)
--- NOTE | 2019-12-11 07:16 | XRay Report ---
XR shoulder RT min 2V routine CLINICAL HISTORY: fall, pain trauma. Pain. COMPARISON: None. DISCUSSION: The bones and joint spaces appear intact. There is no evidence of fracture, dislocation o r bony disease. Moderate degenerative change of acromioclavicular as well as glenohumeral joint. IMPRESSION: Moderate degenerative change. No acute process. ACT 112: Negative or not required by law. The above report was generated using voice recognition software. It may contain grammatical, syntax or spelling errors. Electronically signed by: Geremias Srinivasan M.D. 12/11/2019 7:14 AM
--- NOTE | 2019-12-11 07:28 | XRay Report ---
XR hip RT 2V w pelvis CLINICAL HISTORY: Right hip pain. Fall. COMPARISON STUDY: None. FINDINGS: Mildly impacted subcapital right femoral neck fracture. The visualized pelvic bones, left h ip, and sacrum are intact. Soft tissues are unremarkable. No radiopaque foreign bodies. IMPRESSION: Mildly impacted subcapital right femoral neck fracture. ACT 112: Negative or not required by law. Electronically signed by: Reji Evans M.D. 12/11/2019 7:27 AM
--- NOTE | 2019-12-11 07:31 | XRay Report ---
XR chest 1V portable HISTORY: Hip fracture. Preop. COMPARISON: None. FINDINGS: There are low lung volumes with mild elevation of the right hemidiaphragm. The lungs are cl ear. The heart is mildly enlarged. No pleural effusions. No pneumothorax. There are surgical clips wi thin the left neck. IMPRESSION: Low lung volumes and mild cardiomegaly. ACT 112: Negative or not required by law. Electronically signed by: Reji Evans M.D. 12/11/2019 7:30 AM
[2019-12-11] MEDS: MAGNESIUM OXIDE 400 MG TAB PO SCH (07:40)
[2019-12-11] MEDS: CALCIUM 600MG + VIT D 400 IU TAB PO SCH (07:40)
[2019-12-11] MEDS: SERTRALINE HCL 50 MG TABLET PO SCH (07:41)
[2019-12-11] MEDS: PROPRANOLOL HCL 80 MG TAB PO SCH (07:41)
[2019-12-11] MEDS: PANTOprazole 40 MG TAB PO SCH (07:41)
[2019-12-11] MEDS: BACLOFEN 10 MG TAB PO SCH ×2 (08:20→20:51)
[2019-12-11] MEDS ORDERED: TRIAMTERENE/HCTZ 37.5/25MG TAB PO SCH (09:00)
[2019-12-11] MEDS ORDERED: ENOXAPARIN INJ 40 MG/0.4 ML SYR SQ SCH (09:00)
--- NOTE | 2019-12-11 09:56 | Orthopedic Consultation ---
Date of Consultation December 11, 2019 Assessment & Plan (1) Closed fracture of right hip: X-rays have been reviewed. Patient has a subcapital hip fracture of the right hip. Case has been discussed with Dr. Hogue. He has reviewed the films. Planning for 7.3 cannulated screw fixation of the right hip fracture today. Discussed the case with Dr. Griffin. Rapid COVID test will be done. History of Present Illness Reason for Consultation: Right hip fracture Attending Physician: Eliane Griffin MD History of Present Illness Patient is a 69-year-old white female who states that she was trying to keep up with her [place] dog. He was unable to and stumbled and fell to the ground onto her right hip. At that time, she attempted to get up and noticed that she had moderate pain in her right hip and groin. She had difficulty ambulating. She denies loss of consciousness. She denies hitting her head. She denies any type of injury anywhere else other than her right hip. She was brought to the emergency room and was seen by the staff. X-rays were taken and was found that she had a subcapital hip fracture of the right hip. He was admitted by the [facility] physician hospitalist service and we have been asked to take care of her hip fracture. Allergies Allergy/AdvReac Type Severity Reaction Status Date / Time No Known Allergies Allergy Verified 12/10/19 21:36 Home Medications Home Medications Medication Instructions Recorded Confirmed Type calcium carbonate-vitamin D3 2 tab PO DAILY 12/10/19 12/10/19 History [Calcium 600 + D(3)] levothyroxine 100 mcg PO DAILY 12/10/19 12/10/19 History magnesium oxide 800 mg PO DAILY 12/10/19 12/10/19 History omeprazole 40 mg PO DAILY 12/10/19 12/10/19 History propranolol See Rx Instructions .ROUTE .COMPLEX 12/10/19 12/10/19 History sertraline 50 mg PO Q OTHER DAY 12/10/19 12/10/19 History triamterene-hydrochlorothiazid 1 tab PO DAILY 12/10/19 12/10/19 History zonisamide 50 mg PO HS 12/10/19 12/10/19 History Patient History Medical History Hypothyroid Surgical History S/P appendectomy (Resolved) Social History Preferred Language: Spanish Communication Ability: Effective Beliefs That Will Affect Care: None Current Living Situation: Spouse Other Information That Helps Us Care for You: No Feels Safe at Home: Yes Safety Concerns: Feels Safe At This Time Smoking Status: Never smoker Hx Alcohol Use: No Hx Substance Use: No Review of Systems Review of Systems: All systems reviewed & are unremarkable except as noted in Subjective Physical Exam Physical Exam: Patient is a 69-year-old white female who appears younger than her stated age. She is alert and oriented x3. No acute distress. Pleasant and cooperative. Focusing exam on her right lower extremity, she has the right lower extremity elevated on one pillow which is giving her comfort. She states that anytime she tries to actively move the right lower extremity causes pain in her hip. She has some mild tenderness on the lateral aspect of her right hip. Gentle logrolling and also gentle flexion/ extension of the hip causes her moderate pain in the hip and groin. She denies any knee pain on palpation and gentle range of motion does not elicit a painful response. Further flexion of the knee is deferred due to right hip fracture. She has good strength in her right ankle and foot. Left lower extremity is unaffected and is nontender at the hip knee and ankle. Upper extremities are unaffected at this time and are nontender at the shoulders elbows and wrist. Range of motion is within normal limits. Distal pulses are equal bilaterally of the upper and lower extremities. No gross motor or sensory loss seen at this time. Results & Data ([facility]) Vital Signs (Past 12 Hours) Vital Signs Temp Pulse Resp BP Pulse Ox 12/11/19 07:16 36.6 C 62 18 102/58 L 94 12/11/19 00:23 36.7 C 73 20 154/69 H 97 12/10/19 23:00 74 20 123/64 91 Diagnostic Findings Patient: CHARO VALDEZ Date: 12/10/19 MR#: [id number]: [id number] Acct ID:[id number]: Date: 1City Zip: [place] [address] Age: 69Location: 3N Sex: F Room/Bed: [facility] Att Phy: Paulo Simpson M.D.Diagnosis: HIP FRACTURE Melina Phy: Steven Way, MDService Date: 12/10/19 Fam Phy:Interpreting Phy: Reji Evans MD Admit Phy: Mildred Dickens MD Ordering Phy: Aman Clemente M.D. cc: ~ XR hip RT 2V w pelvis CLINICAL HISTORY: Right hip pain. Fall. COMPARISON STUDY: None. FINDINGS: Mildly impacted subcapital right femoral neck fracture. The visualized pelvic bones, left hip, and sacrum are intact. Soft tissues are unremarkable. No radiopaque foreign bodies. IMPRESSION: Mildly impacted subcapital right femoral neck fracture. (1) Closed fracture of right hip Encounter type: initial encounter Qualified Code(s): S72.001A - Fracture of unspecified part of neck of right femur, initial encounter for closed fracture
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
--- NOTE | 2019-12-11 10:27 | Anesthesiology Consultation ---
Date of Service December 11, 2019 Assessment & Plan (1) Encounter for pre-operative examination: Chart Review Chart Review: Acceptable Risk for Surgery and Patient NOT seen in Pre Admission Testing covid 19 rashawn prescreen 12/11/2019 pending. Consults Requested none History Surgery Operation Date: 12/11/19 09:20 Proposed Procedures p Right Open Reduction Internal Fixation Hip Cannulated Screw - Ross Medina DO Height/Weight Height: 5 ft 1 in Weight: 78.16 kg Allergies Allergy/AdvReac Type Severity Reaction Status Date / Time No Known Allergies Allergy Verified 12/10/19 21:36 Medications Home Medications Medication Instructions Recorded Confirmed Last Taken calcium carbonate-vitamin D3 2 tab PO DAILY 12/10/19 12/10/19 12/10/19 [Calcium 600 + D(3)] levothyroxine 100 mcg PO DAILY 12/10/19 12/10/19 12/10/19 magnesium oxide 800 mg PO DAILY 12/10/19 12/10/19 12/10/19 omeprazole 40 mg PO DAILY 12/10/19 12/10/19 12/10/19 propranolol See Rx Instructions .ROUTE .COMPLEX 12/10/19 12/10/19 12/10/19 sertraline 50 mg PO Q OTHER DAY 12/10/19 12/10/19 12/09/19 triamterene-hydrochlorothiazid 1 tab PO DAILY 12/10/19 12/10/19 12/10/19 zonisamide 50 mg PO HS 12/10/19 12/10/19 12/10/19 Active Medications Generic Name Dose Route Start Last Admin Trade Name Levarq PRN Reason Stop Dose Admin Acetaminophen 650 mg 12/11/19 00:30 12/11/19 05:18 Tylenol PO 01/10/20 00:29 650 mg Q6 HIMANSHU Administration Baclofen 10 mg 12/10/19 23:45 12/11/19 08:20 Lioresal PO 01/09/20 23:44 10 mg BID HIMNASHU Administration Lactated Ringer's 1,000 mls @ 125 mls/hr 12/11/19 00:18 12/11/19 08:56 Lr IV 01/10/20 00:17 125 mls/hr .Q8H HIMANSHU Administration Levothyroxine Sodium 100 mcg 12/11/19 06:30 12/11/19 05:37 Synthroid PO 01/10/20 06:29 100 mcg DAILYBB HIMANSHU Administration Magnesium Oxide 800 mg 12/11/19 09:00 12/11/19 07:40 Mag-Ox PO 01/10/20 08:59 800 mg DAILY HIMANSHU Administration Miscellaneous 1 ea 12/11/19 08:00 12/11/19 07:25 Order Awaiting Action N/A 01/10/20 07:59 Not Given QS HIMANSHU Morphine Sulfate 4 mg 12/10/19 21:18 12/10/19 23:28 Morphine Sulfate IV 12/24/19 21:17 4 mg Q30M PRN Administration Severe Pain (Rating 7,8,9,10) Morphine Sulfate 2 mg 12/11/19 00:18 12/11/19 03:43 Morphine Sulfate IV 12/25/19 00:17 2 mg Q2H PRN Administration MODERATE Pain (Scale 4,5,6) Multivitamins/Minerals 2 tab 12/11/19 09:00 12/11/19 07:40 Caltrate Plus PO 01/10/20 08:59 2 tab DAILY HIMANSHU Administration Pantoprazole Sodium 40 mg 12/11/19 09:00 12/11/19 07:41 Protonix PO 01/10/20 08:59 40 mg DAILY HIMANSHU Administration Propranolol HCl 80 mg 12/11/19 09:00 12/11/19 07:41 Inderal PO 01/10/20 08:59 80 mg QAM HIMANSHU Administration Sertraline HCl 50 mg 12/11/19 09:00 12/11/19 07:41 Zoloft PO 01/10/20 08:59 50 mg Q2D HIMANSHU Administration Triamterene/HCTZ 1 tab 12/11/19 09:00 12/11/19 07:41 Maxzide 37.5/25mg PO 01/10/20 08:59 1 tab DAILY HIMANSHU Administration NPO Date Last Intake of Fluids: 12/11/19 Time Last Intake of Fluids: 00:00 Past Medical History Medical History (Updated 12/11/19 @ 10:26 by Moses Pham MD) GERD (gastroesophageal reflux disease) HTN (hypertension) Hypothyroid Past Surgical History Surgical History (Updated 12/11/19 @ 10:23 by Moses Pham MD) H/O thyroidectomy (Resolved) S/P appendectomy (Resolved) S/P cholecystectomy (Resolved) S/P hysterectomy (Resolved) Social History Smoking Status: Never smoker Hx Alcohol Use: No Hx Substance Use: No Physical Exam Vital Signs Last Vital Signs Temp 36.6 C 12/11/19 07:16 Pulse 62 12/11/19 07:16 Resp 18 12/11/19 07:16 BP 102/58 L 12/11/19 07:16 Pulse Ox 94 12/11/19 07:16 Testing Laboratory Results 12/10/19 21:25 12/11/19 05:30 PT 10.6 Seconds (9.0-12.0) 12/10/19 21:25 INR 1.0 (0.9-1.1) 12/10/19 21: APTT 28.2 Seconds (21.0-31.0) 12/10/19 21:25 Blood Type O Positive 12/10/19 23:03 Antibody Screen NEGATIVE 12/10/19 23:03 Electrocardiogram Date: 12/10/19 Findings: + NSR @ (75) Normal sinus rhythm Low voltage QRS Borderline ECG When compared with ECG of 15-FEB-2002 05:26, Premature supraventricular complexes are no longer Present Chest X-Ray Date: 12/10/19 XR chest 1V portable HISTORY: Hip fracture. Preop. COMPARISON: None. FINDINGS: There are low lung volumes with mild elevation of the right hemidiaphragm. The lungs are clear. The heart is mildly enlarged. No pleural effusions. No pneumothorax. There are surgical clips within the left neck. IMPRESSION: Low lung volumes and mild cardiomegaly.
[2019-12-11] MEDS ORDERED: fentaNYL citrate 100 MCG/2 ML VIAL ONE (11:33)
[2019-12-11] MEDS ORDERED: MIDAZOLAM HCL 1 MG/ML 2ML VIAL ONE (11:33)
[2019-12-11] MEDS ORDERED: BUPIVACAINE 0.5 % 5 MG/1 ML PF 10ML VIAL ONE (12:04)
[2019-12-11] MEDS ORDERED: ONDANSETRON INJ 2 MG/ML 2 ML VIAL IV PRN (12:05)
[2019-12-11] MEDS ORDERED: fentaNYL citrate 100 MCG/2 ML VIAL IV PRN (12:05)
[2019-12-11] MEDS ORDERED: ATROPINE SULFATE 0.1 MG/ML 10ML SYR IV PRN (12:05)
[2019-12-11] MEDS ORDERED: ePHEDrine sulfate 50 MG/ML AMP IV PRN (12:05)
--- NOTE | 2019-12-11 12:15 | History & Physical Bridge Note ---
Date of Service December 11, 2019 History & Physical Bridge Note I have examined the patient, reviewed the History & Physical and in the interval since the performance of the History & Physical I have noted the following changes of clinical significance: no changes noted
[2019-12-11] MEDS ORDERED: PHENYLEPHRINE HCL 10 MG/ML VIAL ONE (13:57)
[2019-12-11] MEDS ORDERED: LIDOCAINE HCL 2% 2 ML VIAL/AMP(20MG/ML) INFIL ONE (13:57)
[2019-12-11] MEDS ORDERED: PROPOFOL IV EMULSION 10 MG/ML 20 ML VIAL IV ONE (13:57)
--- NOTE | 2019-12-11 14:00 | Fluoroscopy Report ---
FL hip RT 2-3V CLINICAL HISTORY: Postoperative evaluation. COMPARISON STUDY: Right hip radiographs December 10, 2019. FLUOROSCOPY TIME: 1 minute and 38 seconds. FLUOROSCOPIC IMAGES: 3 FINDINGS: Fluoroscopy was provided for internal fixation of the right femoral neck fracture with 3 ca nnulated screws. Fracture alignment appears near anatomic. Fracture alignment has improved. The hardw are is intact and there are no unexpected radiopaque foreign bodies. IMPRESSION: Fluoroscopy provided during internal fixation of the right femoral neck fracture. ACT 112: Negative or not required by law. Electronically signed by: Edmund Hu M.D. 12/11/2019 1:59 PM
--- NOTE | 2019-12-11 14:11 | Post Operative Brief Note ---
Immediate Post Op Note v1 Date of Surgery December 11, 2019 Pre & Post Diagnosis Operation Date: 12/11/19 09:20 Pre-Op Diagnosis: Right hip fracture, valgus impacted Garden 1 femoral neck Post-Op Diagnosis: Right hip fracture, nondisplaced mildly valgus impacted Garden 1 femoral neck I identified the patient and participated in the time-out.: Yes Procedure Operation Date: 12/11/19 09:20 Actual Procedures p Cannulated Screw Fixation of Impacted Right Femoral Neck Fracture(Right) - Rafa Hogue MD Surgeon Rafa Hogue MD Heat Regulator None Estimated Blood Loss 15 Findings Consistent with Post-Op Diagnosis Specimens None Drains Luis Catheter (16fr silicone catheter placed without difficulty, luis demonstrates clear yellow urine. Output measured and recorded by anesthesia.) Anesthesia Type MAC Spinal Regional Complications none Disposition Accompanied Patient To Recovery: No Disposition: Recovery Room Overlapping Procedure I was immediately available: during the entire case.
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
--- NOTE | 2019-12-11 15:11 | Anesthesiology Progress Note ---
Date of Service December 11, 2019 Anesthesia Post Procedure Vital Signs Vital Signs: Temp Pulse Pulse Pulse Resp BP BP 12/11/19 15:05 65 19 125/73 12/11/19 14:55 57 L 12 105/56 L 12/11/19 14:45 60 12 105/59 L 12/11/19 14:35 62 15 108/59 L 12/11/19 14:25 70 17 97/70 L 12/11/19 14:15 70 13 104/66 12/11/19 14:09 97.9 F 66 16 121/73 12/11/19 11:51 97.2 F L 70 18 112/71 12/11/19 07:16 97.9 F 62 18 102/58 L 12/11/19 00:23 98.1 F 73 20 154/69 H 12/10/19 23:00 74 20 123/64 12/10/19 21:15 98.1 F 75 16 132/74 Pulse Ox 12/11/19 15:05 100 12/11/19 14:55 99 12/11/19 14:45 98 12/11/19 14:35 94 12/11/19 14:25 93 12/11/19 14:15 99 12/11/19 14:09 99 12/11/19 11:51 95 12/11/19 07:16 94 12/11/19 00:23 97 12/10/19 23:00 91 12/10/19 21:15 95 Pain Intensity Right Hip: Pain Intensity: 7 Transfer of Care Handoff Completed per policy Notes Mental Status: alert / awake / arousable and participated in evaluation Patient Amnestic to Procedure: Yes Nausea / Vomiting: adequately controlled Pain: adequately controlled Airway Patency, RR, SpO2: stable & adequate BP & HR: stable & adequate Hydration State: stable & adequate Neuraxial Anesthesia: was administered and sensory block is resolving Anesthetic Complications: no major complications apparent and Pt Satisfied with anesthetic care
--- NOTE | 2019-12-11 15:21 | XRay Report ---
XR hip RT min 2V CLINICAL HISTORY: Post-Operative implant position COMPARISON: 12/10/2019 DISCUSSION: Anatomic alignment post placement of 3 Zavala pins within the right hip. Alignment is an atomic. Spectral soft tissue postoperative change IMPRESSION: Anatomic alignment post right hip pinning ACT 112: Negative or not required by law. The above report was generated using voice recognition software. It may contain grammatical, syntax or spelling errors. Electronically signed by: Geremias Srinivasan M.D. 12/11/2019 3:20 PM
[2019-12-11] MEDS: ACETAMINOPHEN 500 MG TAB PO SCH ×2 (15:49→23:08)
--- NOTE | 2019-12-11 16:13 | Electrocardiogram Report ---
Test Reason : Blood Pressure : / mmHG Vent. Rate : 075 BPM Atrial Rate : 075 BPM P-R Int : 168 ms QRS Dur : 076 ms QT Int : 390 ms P-R-T Axes : 035 009 045 degrees QTc Int : 435 ms Normal sinus rhythm Low voltage QRS Borderline ECG When compared with ECG of 15-FEB-2002 05:26, No significant change Confirmed by Oli Aguilar ([id number]) on 12/11/2019 4:12:59 PM Referred By: REFERRED SELF Confirmed By:Oli Aguilar
[2019-12-11] MEDS: HYDROmorphone INJ 0.5 MG/0.5 ML SYR IV PRN ×2 (17:19→20:51)
[2019-12-11] MEDS: DOCUSATE SODIUM/SENNA 50/8.6MG TAB PO SCH (20:51)
[2019-12-11] MEDS: ASPIRIN 81 MG ECTAB PO SCH (20:51)
[2019-12-11] MEDS ORDERED: PROPRANOLOL HCL 20 MG TAB PO SCH (21:00)
[2019-12-11] MEDS: ONDANSETRON INJ 2 MG/ML 2 ML VIAL IV PRN (22:47)
[2019-12-12] MEDS ORDERED: OPTIRAY 320 125ml IV PRN (00:16)
[2019-12-12] MEDS: HYDROmorphone INJ 0.5 MG/0.5 ML SYR IV PRN ×2 (02:23→05:17)
[2019-12-12] MEDS: ACETAMINOPHEN 500 MG TAB PO SCH ×3 (06:22→23:45)
[2019-12-12] MEDS: LEVOTHYROXINE SODIUM 100 MCG TABLET PO SCH (06:22)
--- NOTE | 2019-12-12 06:50 | Billing Data ---
Date of Service December 12, 2019 Coding Level of Care Code 69156 Initial Inpt Care Lvl 2
[2019-12-12 06:59] LABS: Albumin Level 2.8 gm/dl (3.4-5.0); BUN Creatinine Ratio 18.2 (10-20); Calcium 8.3 mg/dl (8.5-10.1); Creatinine Clr Calc Pharmacy 57.9 ml/min; Est GFR (African American) 78.2; Est GFR (Non-African American) 67.5; Potassium 3.7 mmol/L (3.5-5.1)
[2019-12-12 07:02] LABS: Albumin Globulin Ratio 0.7 (0.9-2); Bilirubin,Total 0.8 mg/dl (0.2-1); Globulin 4.1 gm/dl (2.5-4.0); Total Protein 6.9 gm/dl (6.4-8.2)
[2019-12-12 07:39] LABS: Basophils # (auto) 0.02 K/uL (0-0.2); Basophils % (auto) 0.2 %; Eosinophils # (auto) 0.28 K/uL (0-0.5); Eosinophils % (auto) 2.6 %; Hematocrit (blood only) 37.4 % (37-47); Immature Granulocytes # (auto) 0.03 K/uL (0.00-0.02); Immature Granulocytes % (auto) 0.3 %; Lymphocytes % (auto) 16.8 %; Mean Corpuscular Hemoglobin 30.3 pg (25-34); Mean Corpuscular Hgb Conc 32.1 g/dL (32-36); Mean Corpuscular Volume 94.4 fL (80-100); Mean Platelet Volume 10.9 fL (7.4-10.4); Monocytes # (auto) 0.77 K/uL (0.11-0.59); Monocytes % (auto) 7.2 %; Neutrophils # (auto) 7.81 K/uL (1.4-6.5); Neutrophils % (auto) 72.9 %; Platelet Count 237 K/uL (130-400); RDW Coefficient of Variation 12.9 % (11.5-14.5); RDW Standard Deviation 44.7 fL (36.4-46.3); Red Blood Count 3.96 M/uL (4.2-5.4); White Blood Count 10.71 K/uL (4.8-10.8)
[2019-12-12] MEDS: LACTATED RINGER'S 1,000 ML IV SCH ×3 (07:59→23:45)
--- NOTE | 2019-12-12 08:42 | CT Scan Report ---
CT ANGIOGRAPHY OF THE CHEST, PULMONARY EMBOLUS PROTOCOL CLINICAL HISTORY: Shortness of breath. Evaluate for pulmonary embolus. COMPARISON STUDY: Chest radiograph December 10, 2019. TECHNIQUE: Following IV administration of 118 mL of Optiray-320, helical axial images of the chest we re obtained utilizing the pulmonary embolus protocol. Maximal intensity projections and sagittal and coronal reformats were viewed on an independent 3D workstation. IV contrast was administered withou t complication. Automated exposure control was utilized for the study. A dose lowering technique wa s utilized adhering to the principles of ALARA. CT DOSE: 519.19 mGy.cm FINDINGS: No pulmonary emboli are identified. There is no thoracic aortic dissection. There is moder ate plaque of the thoracic aorta. Mild cardiomegaly is noted with no pericardial effusion. No enlarge d thoracic lymph nodes are noted. The central airways are patent. There is no pneumothorax or pleural effusion. There is no consolidation. Subpleural opacities reflect atelectasis. Bony thorax is unrema rkable. Upper abdomen is unremarkable with exception probable fatty infiltration of the liver. Surgic al clips within the lower neck and upper mediastinum are noted. IMPRESSION: 1. No pulmonary emboli identified. 2. No acute findings within the chest. ACT 112: Negative or not required by law. Electronically signed by: Edmund Hu M.D. 12/12/2019 8:41 AM
[2019-12-12] MEDS: PANTOprazole 40 MG TAB PO SCH (08:53)
[2019-12-12] MEDS: BACLOFEN 10 MG TAB PO SCH ×2 (08:53→20:45)
[2019-12-12] MEDS: PROPRANOLOL HCL 80 MG TAB PO SCH (08:53)
[2019-12-12] MEDS: MAGNESIUM OXIDE 400 MG TAB PO SCH (08:54)
[2019-12-12] MEDS: CALCIUM 600MG + VIT D 400 IU TAB PO SCH (08:56)
[2019-12-12] MEDS: ASPIRIN 81 MG ECTAB PO SCH ×2 (08:56→20:45)
[2019-12-12] MEDS ORDERED: ENOXAPARIN INJ 40 MG/0.4 ML SYR SQ SCH (09:00)
--- NOTE | 2019-12-12 10:12 | Orthopedic Progress Note ---
Date of Service December 12, 2019 Assessment & Plan (1) Closed fracture of right hip: Postop day 2 status post ORIF right subcapital hip fracture with 7.3 cannulated screws PT/OT protocols. Toe-touch weightbearing. DVT prophylaxis with aspirin p.o. twice daily, SCDs. Pain management as written. Patient progressing well with her physical therapy. States that she is been up and ambulating around the hallway. Plan for follow-up with Dr. Hogue in 2 weeks. DC planning- discharge to home when okay with medicine service. Admission and Anticipated Discharge Date Admission Date: December 10, 2019 Subjective Postop day 1 status post ORIF right hip fracture with 7.3 cannulated screws Patient sitting up in her chair at the bedside. Having a little bit of soreness in the right hip but states that she is otherwise feeling well. Denies any shortness of breath, chest pain, lightheadedness. She states that she had some difficulty with getting her oxygen levels back to normal but currently she is no longer on O2 per nasal cannula and denies any breathing difficulties. Physical Exam Physical Exam: Dressings are clean, dry, and intact. Mild thigh swelling but soft. Calves are soft and nontender. Neurovascular is intact. Toes are mobile. Results & Data ([facility]) Vital Signs (Past 12 Hours) Vital Signs Temp Pulse Resp BP BP Pulse Ox Pulse Ox 12/12/19 09:34 97 12/12/19 07:24 36.8 C 76 18 103/55 L 96 12/12/19 02:21 36.9 C 83 14 113/61 97 12/11/19 23:45 37.2 C 140 H 14 104/66 97 Laboratory Results Laboratory Results WBC 10.71 K/uL (4.8-10.8) 12/12/19 06:17 RBC 3.96 M/uL (4.2-5.4) L 12/12/19 06:17 Hgb 12.0 g/dL (12.0-16.0) 12/12/19 06:17 Hct 37.4 % (37-47) 12/12/19 06:17 MCV 94.4 fL (80-100) 12/12/19 06:17 MCH 30.3 pg (25-34) 12/12/19 06:17 MCHC 32.1 g/dL (32-36) 12/12/19 06:17 RDW Std Deviation 44.7 fL (36.4-46.3) 12/12/19 06:17 RDW Coeff of Remi 12.9 % (11.5-14.5) 12/12/19 06:17 Plt Count 237 K/uL (130-400) 12/12/19 06:17 MPV 10.9 fL (7.4-10.4) H 12/12/19 06:17 Immature Gran % (Auto) 0.3 % 12/12/19 06:17 Neut % (Auto) 72.9 % 12/12/19 06:17 Lymph % (Auto) 16.8 % 12/12/19 06:17 [place] % (Auto) 7.2 % 12/12/19 06:17 Eos % (Auto) 2.6 % 12/12/19 06:17 Baso % (Auto) 0.2 % 12/12/19 06:17 Neut # (Auto) 7.81 K/uL (1.4-6.5) H 12/12/19 06:17 Lymph # (Auto) 1.80 K/uL (1.2-3.4) 12/12/19 06:17 [place] # (Auto) 0.77 K/uL (0.11-0.59) H 12/12/19 06:17 Eos # (Auto) 0.28 K/uL (0-0.5) 12/12/19 06:17 Baso # (Auto) 0.02 K/uL (0-0.2) 12/12/19 06:17 Immature Gran # (Auto) 0.03 K/uL (0.00-0.02) H 12/12/19 06:17 PT 10.6 Seconds (9.0-12.0) 12/10/19 21:25 INR 1.0 (0.9-1.1) 12/10/19 21:25 APTT 28.2 Seconds (21.0-31.0) 12/10/19 21:25 PTT Ratio 1.0 12/10/19 21:25 Sodium 136 mmol/L (136-145) 12/12/19 06:17 Potassium 3.7 mmol/L (3.5-5.1) 12/12/19 06:17 Chloride 103 mmol/L (98-107) 12/12/19 06:17 Carbon Dioxide 31 mmol/L (21-32) 12/12/19 06:17 Anion Gap 2.0 (3-11) L 12/12/19 06:17 BUN 16 mg/dl (7-18) 12/12/19 06:17 Creatinine 0.88 mg/dl (0.6-1.2) 12/12/19 06:17 Est Cr Clr Drug Dosing 57.9 ml/min 12/12/19 06:17 Est GFR ( Amer) 78.2 12/12/19 06:17 Est GFR (Non-Af Amer) 67.5 12/12/19 06:17 BUN/Creatinine Ratio 18.2 (10-20) 12/12/19 06:17 Glucose 104 mg/dl (70-99) H 12/12/19 06:17 Calcium 8.3 mg/dl (8.5-10.1) L 12/12/19 06:17 Total Bilirubin 0.8 mg/dl (0.2-1) 12/12/19 06:17 AST 26 U/L (15-37) 12/12/19 06:17 ALT 33 U/L (12-78) 12/12/19 06:17 Alkaline Phosphatase 70 U/L (45-117) 12/12/19 06:17 Total Protein 6.9 gm/dl (6.4-8.2) 12/12/19 06:17 Albumin 2.8 gm/dl (3.4-5.0) L 12/12/19 06:17 Globulin 4.1 gm/dl (2.5-4.0) H 12/12/19 06:17 Albumin/Globulin Ratio 0.7 (0.9-2) L 12/12/19 06:17 COVID-19 PCR NEGATIVE (Negative) 12/11/19 08:40 SARS-CoV-2 RNA (RT-PCR) Cancelled 12/11/19 08:40 Blood Type O Positive 12/10/19 23:03 Antibody Screen NEGATIVE 12/10/19 23:03 (1) Closed fracture of right hip Encounter type: initial encounter Qualified Code(s): S72.001A - Fracture of unspecified part of neck of right femur, initial encounter for closed fracture
--- NOTE | 2019-12-12 11:49 | Discharge Summary ---
Date of Service December 13, 2019 Admission HPI Per Admitting Provider 69-year-old otherwise healthy female who presents the emergency department today after having fallen at home. She was trying to edd down her [place] dog who weighs 130 pounds and states that "the Mackenzie won". She tripped and landed on her right hip in the grass and upon trying to move and get up immediately had sharp stabbing pain in the right hip and was unable to get up from there. She denies any distal numbness or tingling describes all of the pain as being located in the right inguinal region. She says that she lays still and does not move the pain is manageable however as soon as she tries to move her thyroid and portion of her legs the pain returns. She denies any nausea or vomiting and says her pain is currently well controlled having gotten 4 mg of morphine IV. Primary Care Provider: Steven Way Admission Exam Per Admitting Provider Constitutional: cooperative; no acute distress and not ill appearing Neck: normal visual inspection Respiratory: normal respiratory effort and able to speak in complete sentences; no respiratory distress, no labored breathing, no retractions, no cough and no audible wheezes Auscultation: lungs clear to auscultation bilaterally; no crackles, no rales, no rhonchi and no wheezes Cardiovascular: Rate/Rhythm: regular rate and regular rhythm Heart Sounds: normal S1 and normal S2; no gallop, no murmur and no cardiac rub Vessels: posterior tibial pulses present Extremities: no pedal edema and no edema Gastrointestinal (Abdomen): Inspection/Auscultation: abdomen normal to inspection and normal bowel sounds; abdomen not distended Percussion/Palpation: abdomen soft; abdomen nontender, no guarding, abdomen not rigid and no abdominal mass Musculoskeletal: Hip: no deformity and no ecchymosis mildly tender to palpation of lateral right thigh, no overlying ecchymoses or skin breaks, no obvious deformity, 2+ PT and DP pulses, no pallor of skin, able to dorsiflex and plantarflex ankle without pain or restriction Principal Diagnosis CLOSED LEFT HIP FRACTURE Discharge Exam Constitutional WD/WN, vitals as above cooperative; no acute distress Eyes + anicteric sclerae and PERRL Neck trachea midline, no thyromegaly Respiratory normal respiratory effort and able to speak in complete sentences; no respiratory distress Cardiovascular RRR, no murmur, no edema Gastrointestinal (Abdomen) normal bowel sounds, soft, nontender, no hepatosplenomegaly Musculoskeletal dressing R hip c/d/i minimally tender to palpation at site of incision NVI 2+ pulses pd, pt bilaterally Skin no rashes, warm and dry Neurologic PERRL, EOMI, accommodation nl, no face palsy, no dysarthria Psychiatric A+Ox3, euthymic affect Lymphatic no cervical or axillary lymphadenopathy Discharge Data Allergies Allergy/AdvReac Type Severity Reaction Status Date / Time No Known Allergies Allergy Verified 12/10/19 21:36 Consultations 12/10/19 22:47 ED Decision to Admit Stat 12/11/19 00:18 Consult Case Management - Discharge Planning Routine Consult Orthopedic Surgery Routine 12/11/19 14:49 Consult Case Management - Discharge Planning Routine Procedures Performed Operation Date: 12/11/19 09:20 Actual Procedures p Cannulated Screw Fixation of Impacted Right Femoral Neck Fracture(Right) - Rafa Hogue MD Ordered Studies 12/09 CXR Hip XRAY 12/11/19 14:00 FL fluoroscopy <1hr Routine FL hip RT 2-3V Routine 12/12/19 00:01 CT angio chest PE protocol Urgent Hospital Course (1) Closed fracture of right hip: * Mechanical fall while walking her [place]. Imaging with mildly impacted nondisplaced RIGHT femoral neck fracture. COVID testing negative pre- op. * Orthopedics consulted * S/P Internal fixation with cannulated screws with Dr. Hogue on 12/10 * Had episode of nausea post-operatively with administration of dilaudid and PO opioid analgesics and stayed additional night (also with episode of hypoxia overnight but with hx ISA compounded with pain medication. To be on CPAP but declined outpt. Rec'd follow up and to begin therapy with CPAP. Reviewed risks of untreated ISA.) * Pain controlled and no further nausea with tramadol -- ordered at discharge * DVT prophylaxis with stockings, ASA 81mg BID per orthopedics * Follow up with Orthopedics in 2 weeks following surgery (2) Fall: * See above * PT/OT per ortho following surgery (3) HTN (hypertension): * Chronic. 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 Did not receive while inpatient as was non-formulary (6) Sleep apnea: * Hx of -- per patient she had been tested outpatient and rec to initiate CPAP but declined --> recommended following up outpatient to begin CPAP therapy as she had dropped her O2 sat overnight to 86% overnight after discontinuing pain medications, as the night before anticipated discharge she had received several doses of diluadid and oxycodone in the morning and had increased nausea and anorexia following night with O2 sat dropping into the 60s. CT negative for PE. EKG without abn * Rec follow up outpatient (7) DVT prophylaxis: * SCDS, ASA 81mg BID Total Time Total Time Spent Total Time Spent (In Minutes): 70 Discharge Plan Discharge Items Patient Disposition: Home - Home Health Services Reason For Visit: HIP FRACTURE Discharge Diagnosis: Right Subcapital Hip Fracture Condition on Discharge: Good Goals: You have been hospitalized for an urgent problem which required surgery. During your stay at [facility], we have made an effort to correct the problem that brought you to the hospital while keeping you as comfortable as possible. Surgery and medications were used to bring your condition under control and your discharge instructions will include directions for any medications you should take after leaving the hospital. Please make sure to follow the advice of your surgeon regarding follow up with the surgeon and with your primary care provider. Activity: Per Instructions section Weightbearing: Right toe touch Weightbearing Comment: with walker Non-emergency contact: Surgeon Call non-emergency contact if: your pain is not controlled, your temperature is above 101.5, your wound has increased redness and your wound has increased drainage Follow-up/Referrals: Steven Way [Primary Care Provider] - Rafa Hogue MD [Surgeon] - (2 weeks) Diet: Heart Healthy Addtl Attending Provider Instructions: [facility] DISCHARGE INSTRUCTIONS: HIP FRACTURE SELF CARE INSTRUCTIONS: A. You are to ambulate with a walker or crutches for approximately 6 weeks. B. You are TOE TOUCH WEIGHT BEARING on your operative lower extremity for at least 6 weeks. C. Wear low heeled shoes with non-slip soles D. Be sure that your floors are free of things that could trip you throw rugs, electrical cords, and small objects. Avoid wet and waxed floors, especially with crutches/walker/cane. E. Try to walk several times a day with rest periods between. F. You may shower 48 hours after surgery and get the incision area wet, but DO NOT soak or submerge incision area in water. (No baths, swimming pools, hot tubs) G. You may have a large, band-aid like dressing over your incision (Aquacel). This will remain on your incision for 7 days, and then can be removed. You CAN shower with this on. If incision is leaking through the dressing, please call the office . H. Do NOT apply soap or any ointment/lotions directly over incision. I. You may use ice as needed to operative site. SPECIAL CARE INSTRUCTIONS: VERY IMPORTANT TO READ AND REVIEW A. You may be at risk for phlebitis or blood clots. a. Wear surgical stockings (FOX hose) for 2 weeks after surgery to improve circulation and reduce swelling. b. Take ASPIRIN 81mg po BID for 4 weeks or as directed. This is your blood thinner. B. There are a few signs you need to watch for after you are home. Call [facility] at [phone] if you experience any of the following: a. If you have a temperature of 101 degrees or higher. b. Sudden increase in pain in your hip not relieved by rest or pain medication. c. Any fluid or drainage from the incision; redness of the incision. d. Shortness of breath or chest pain. C. Call your physician if: a. Temperature is greater than 101 degrees (F). b. Pain is not relieved by prescribed pain medications. c. Increase drainage or redness from incision. d. Unanswered questions or concerns. D. Pain Medication: a. You will be prescribed pain medication upon discharge that should last till your first post-operative appointment. b. If you experience nausea and/or skin rash, discontinue this medication and contact our office for an alternative medication. c. Caution- narcotic pain medication can cause constipation. FOLLOW UP VISIT: Please call [facility] at [phone] to schedule a follow up appointment with Dr. Hogue in 10-14 days from the date of your surgery date. Addtl Air Director Provider Instructions: You have been hospitalized for a RIGHT hip fracture. You were taken to surgery to have this corrected with Dr. Hogue. Please follow up with him in two weeks for follow-up. It is recommended that you continue with ASPIRIN 81mg by mouth TWICE daily as well as stocking to prevent blood clots. Pain medications have been sent to your pharmacy for breakthrough pain, however it is recommended that you avoid opioid pain medications if at all possible, given increased nausea and decreased respiratory status following administration of these medications during your hospital stay. It is recommended that you continue tylenol 1,000mg (2 tablets) every eight hours to help provide pain relief. You have also been sent a prescription for tramadol (pain medication) to take every 6-8 hours as needed for breakthrough pain. You were evaluated by therapy and it is recommended that you be able to return home with home health services. You should hold your triamterene-HCTZ for tomorrow as your blood pressures have been on the lower side. You may resume this on Saturday. Case management has made referrals and will set this up for you. You should follow up with your primary care provider in the next week to monitor your progress. It is also recommended to follow up regarding your sleep apnea and possible CPAP as you have had saturations drop overnight while in the hospital and should be on CPAP at night. Please return to the emergency room with any increased pain, chest pain, shortness of breath, fevers, or for any other symptoms that are concerning for you. It has been a pleasure being a part of the care team providing for you while you have been in the hospital. Take care! Pending Studies at Discharge: No Stand-Alone Forms: My [facility] Simple-Fill, Smoking Cessation Medications and DC Order Prescriptions: New aspirin 81 mg Tablet,Delayed Release (Dr/Ec) 81 mg PO BID 30 Days Qty: 60 RF: 0 acetaminophen 500 mg Tablet 1,000 mg PO Q8H 14 Days Qty: 84 RF: 0 tramadol 50 mg Tablet 50 mg PO Q4H PRN (Reason: pain) Qty: 12 RF: 0 Continued omeprazole 40 mg Capsule,Delayed Release(Dr/Ec) 40 mg PO DAILY RF: 0 levothyroxine 100 mcg Tablet 100 mcg PO DAILY RF: 0 propranolol 40 mg Tablet See Rx Instructions .ROUTE .COMPLEX RF: 0 sertraline 25 mg Tablet 50 mg PO Q OTHER DAY RF: 0 triamterene-hydrochlorothiazid 37.5-25 mg Tablet 1 tab PO DAILY RF: 0 zonisamide 25 mg Capsule 50 mg PO HS RF: 0 calcium carbonate-vitamin D3 [Calcium 600 + D(3)] 600 mg(1,500mg) -400 unit Tablet 2 tab PO DAILY RF: 0 magnesium oxide 400 mg magnesium Tablet 800 mg PO DAILY RF: 0 Discharge Orders: Discharge Order (Routine); Ordered 12/13/19 Ordered By: Eliane Griffin Admission Data Admit Date/Time: 12/10/19 23:49 Attending Provider: Eliane Griffin Admit Provider: Mildred Dickens Primary Care Provider: Steven Way Other Providers: Paulo Simpson ; Reggie Hahn ; [facility] Other Interventions: Discharge Summary Assessment (RN) Last Done: 12/13/19 12:52 DC Date/Time DO NOT enter until pt leaves facility: 12/13/19 14:27 Supervising Physician Co-Signing Physician Notes PA Supervision Note: I personally saw and examined the patient. I verified all anguiano points and agree with CHRIS Ward with the following exceptions and/or additions: Patient feeling significantly improved from yesterday. No further nausea, is tolerating meals. Pain controlled on tramadol now and no nausea with that. Discussed her care with Ortho PA. Stable for dc to home Vitals reviewed Gen: AAOx3, NAD HEENT: Anicteric sclerae, EOMI CV: RRR no mgr nl S1S2 Pulm: CTAB no wcr Ext: No edema Skin: No rashes, warm/dry 69-year-old female here with hip fracture on the right now status post repair. Had some postop nausea likely secondary to opioid medications-now resolved dc to home Coding Level of Care Code D/C Day Management >30 mins Diagnoses Closed fracture of right hip S72.001A Encounter type: initial encounter Fall W19.XXXA Encounter type: initial encounter HTN (hypertension) I10 GERD (gastroesophageal reflux disease) K21.9 Tremor R25.1 Sleep apnea G47.30 DVT prophylaxis Z29.9
[2019-12-12] MEDS: ONDANSETRON INJ 2 MG/ML 2 ML VIAL IV PRN (13:03)
[2019-12-12] MEDS ORDERED: KETOROLAC TROMETHAMINE 10 MG TABLET PO PRN (13:28)
--- NOTE | 2019-12-12 14:33 | Electrocardiogram Report ---
Test Reason : Blood Pressure : / mmHG Vent. Rate : 125 BPM Atrial Rate : 125 BPM P-R Int : 224 ms QRS Dur : 070 ms QT Int : 310 ms P-R-T Axes : 000 016 030 degrees QTc Int : 447 ms Sinus tachycardia with 1st degree A-V block Otherwise normal ECG When compared with ECG of 10-DEC-2019 22:58, RI interval has increased Vent. rate has increased BY 50 BPM Confirmed by Jose Carlos Fritz ([id number]) on 12/12/2019 2:33:09 PM Referred By: REFERRED SELF Confirmed By:Jose Carlos Fritz
[2019-12-12] MEDS ORDERED: ALBUTEROL HFA 8 GM INHALER INH PRN (16:16)
--- NOTE | 2019-12-12 16:19 | Hospitalist Progress Note ---
Date of Service December 12, 2019 Assessment & Plan (1) Closed fracture of right hip: * Mechanical fall while walking her 130lb [facility] [place] * CXR with low lung volumes, mild cardiomegaly -- no history of CHF -- monitor volume status, 94% on RA. EKG NSR 75bpm, low voltage QRS -- of note, no muffled heart sounds, JVD but was mildly hypotensive (asymptomatic during examination) * Orthopedics consulted * POD#1 s/p RIGHT ORIF with Dr. Hogue on 12/10 (follows with [facility] in [place]). EBL 15mL. Pre-op h/h 13.3/39.1 * H/h 12/37.7 -- expected change secondary to surgery/IVF * Patient with episode of hypoxia with O2 in 60% overnight 12/10 --> stat EKG with sinus tach 1st degree AV block, 125bpm. CT Chest without evidence for pulmonary emboli, no acute findings, no consolidation. Mild cardiomegaly again noted (no formal dx CHF), subpleural opacities reflect atelectasis. Likely related to pain medication (had gotten dilaudid x 2 and then again with similar decline following oxycodone morning 12/11) * Pain control -- will continue tylenol 1000mg Q8 and toradol prn in leui of opioid pain medications -- monitor pain control * PT/OT * DVT prophylaxis with ASA 81mg BID per ortho --> discontinued lovenox (2) Fall: * See above * PT/OT per ortho following surgery with rec to return home with home health. CM aware (3) HTN (hypertension): * Chronic. Lower at 103/58, generalized malaise. Patient states her anti-h ypertensive agents are used for excessive fluid retention and not for HTN --> pt on propranalol (for tremor) and trimterene-HCTZ for fluid retention * Triameterene-HCTZ held -- continue to hold as BP 103/58 * Will hold evening propranolol as no s/sx increased tremor * Continue to monitor (4) GERD (gastroesophageal reflux disease): * Patient on omeprazole [employer] --> placed on protonix 40mg while inpatient (5) Tremor: * Reported history of tremor R hand --> takes propranolol, zonisamide 50mg HS (Zonisamide non-formulary -- if increased tremor would rec having this brought in) (6) Hypothyroid: * Chronic. No TSH in system, will obtain with AM labs. * Continue home levothyroxine 100mcg daily (7) Asthma: * Hx of. Not on inhaler outpatient -- will order albuterol prn shortness of breath/wheezing (8) DVT prophylaxis: * SCDs * ASA 81mg BID * Did get lovenox x 1 as ordered by overnight provider -- discontinued Dispo: likely discharge tomorrow Admission and Anticipated Discharge Date Admission Date: December 10, 2019 Supervising Physician Co-Signing Physician Notes PA Supervision Note: I personally saw and examined the patient. I verified all anguiano points and agree with CHRIS Ward with the following exceptions and/or additions: Patient feeling nauseated since receiving oxycodone does not feel like eating any for lunch. She is on a bowel movement in several days. She has not thrown up. It seems she is not likely ready for discharge today as planned. Vitals reviewed Gen: AAOx3, NAD HEENT: Anicteric sclerae, EOMI CV: RRR no mgr nl S1S2 Pulm: CTAB no wcr Abd: +BS soft NT ND no masses or hernias Ext: No edema, 2+ DP pulses Skin: No rashes, warm/dry Neuro: Full strength throughout 69-year-old female here with hip fracture on the right now status post repair. Dealing with some postop nausea likely secondary to opioid medications -Changed to Toradol and Tylenol only and avoid opioids Antiemetics as needed Will stay overnight hopeful for discharged home tomorrow with home health. Subjective Patient evaluated this morning and stated she was feeling better. Had episode of shortness of breath last evening but denies any since that time. Had been up with therapy walking the halls and stated pain tolerable with pain medications provided. Excited to be discharged later in the day if able to void once luis discontinued and pain controlled/no further shortness of breath. States pain primarily located L hip above site of incision Denied any fevers, chills, chest pain, shortness of breath, abdominal pain, n/v/d, or dysuria at this time. Later in the morning after administration of pain medication, patient became more nauseous, painful and generally not feeling well. Did not want to eat lunch secondary to nausea. Checked on in the afternoon and still feeling a little run down. Agreeable to avoid opioid medication and will add on non-opioid analgesic to see if this provides relief and no further nausea. Agreeable to stay overnight and possible discharge in the morning. Review of Systems Review of Systems: All systems reviewed & are unremarkable except as noted in HPI & below Physical Exam Constitutional: WD/WN, vitals as above cooperative; no acute distress Eyes: + anicteric sclerae and PERRL Neck: trachea midline, no thyromegaly Respiratory: normal respiratory effort and able to speak in complete sentences; no respiratory distress Auscultation: + wheezes (expiratory) Cardiovascular: RRR, no murmur, no edema Gastrointestinal (Abdomen): normal bowel sounds, soft, nontender, no hepatosplenomegaly Musculoskeletal: dressing to R hip c/d/i minimall tender to palpation over greater trochanter NVI 2+ pulses dp, pt bilaterally strength 5/5 Skin: warm, dry Neurologic: PERRL, EOMI, accommodation nl, no face palsy, no dysarthria Psychiatric: A+Ox3, euthymic affect Genitourinary: luis with yellow urine draining Results & Data Results & Data ([facility]) Vital Signs (Past 12 Hours) Vital Signs Temp Pulse Resp BP Pulse Ox Pulse Ox 12/12/19 15:35 37 C 75 18 103/58 L 93 12/12/19 10:40 95 12/12/19 09:34 97 12/12/19 07:24 36.8 C 76 18 103/55 L 96 PG Care Time/CCT Total # of Minutes Spent Total Time Spent with Patient: Total time spent is greater than 50% in coordination of care (as documented) at patient's floor/unit and/or counseling patient: Coding Level of Care Code 50595 Subseq Hosp Care Lvl 3 Diagnoses Closed fracture of right hip S72.001A Encounter type: initial encounter Fall W19.XXXA Encounter type: initial encounter HTN (hypertension) I10 GERD (gastroesophageal reflux disease) K21.9 Tremor R25.1 Hypothyroid E03.9 Asthma J45.909 DVT prophylaxis Z29.9 (1) Fall Encounter type: initial encounter Qualified Code(s): W19.XXXA - Unspecified fall, initial encounter (2) Closed fracture of right hip Encounter type: initial encounter Qualified Code(s): S72.001A - Fracture of unspecified part of neck of right femur, initial encounter for closed fracture
[2019-12-12] MEDS: DOCUSATE SODIUM/SENNA 50/8.6MG TAB PO SCH (20:45)
[2019-12-13] MEDS: LEVOTHYROXINE SODIUM 100 MCG TABLET PO SCH (05:34)
[2019-12-13 06:05] LABS: Basophils # (auto) 0.01 K/uL (0-0.2); Basophils % (auto) 0.1 %; Eosinophils # (auto) 0.21 K/uL (0-0.5); Eosinophils % (auto) 2.5 %; Hematocrit (blood only) 33.3 % (37-47); Hemoglobin 10.8 g/dL (12.0-16.0); Immature Granulocytes # (auto) 0.02 K/uL (0.00-0.02); Immature Granulocytes % (auto) 0.2 %; Lymphocytes # (auto) 2.09 K/uL (1.2-3.4); Mean Corpuscular Hemoglobin 30.2 pg (25-34); Mean Corpuscular Hgb Conc 32.4 g/dL (32-36); Mean Platelet Volume 10.4 fL (7.4-10.4); Monocytes # (auto) 0.56 K/uL (0.11-0.59); Monocytes % (auto) 6.7 %; Neutrophils # (auto) 5.46 K/uL (1.4-6.5); Neutrophils % (auto) 65.5 %; Platelet Count 161 K/uL (130-400); RDW Coefficient of Variation 12.9 % (11.5-14.5); RDW Standard Deviation 43.6 fL (36.4-46.3); Red Blood Count 3.58 M/uL (4.2-5.4); White Blood Count 8.35 K/uL (4.8-10.8)
[2019-12-13] MEDS: ACETAMINOPHEN 500 MG TAB PO SCH (06:26)
[2019-12-13 06:36] LABS: Calcium 8.4 mg/dl (8.5-10.1); Creatinine Clr Calc Pharmacy 71.8 ml/min; Est GFR (African American) 101.4; Est GFR (Non-African American) 87.5; Potassium 3.5 mmol/L (3.5-5.1)
[2019-12-13 06:46] LABS: Thyroid Stimulating Hormone 0.731 uIu/ml (0.300-4.500)
[2019-12-13] MEDS: BACLOFEN 10 MG TAB PO SCH (09:26)
[2019-12-13] MEDS: PROPRANOLOL HCL 80 MG TAB PO SCH (09:27)
[2019-12-13] MEDS: CALCIUM 600MG + VIT D 400 IU TAB PO SCH (09:27)
[2019-12-13] MEDS: PANTOprazole 40 MG TAB PO SCH (09:27)
[2019-12-13] MEDS: SERTRALINE HCL 50 MG TABLET PO SCH (09:27)
[2019-12-13] MEDS: MAGNESIUM OXIDE 400 MG TAB PO SCH (09:27)
[2019-12-13] MEDS: ASPIRIN 81 MG ECTAB PO SCH (09:27)
[2019-12-13] MEDS ORDERED: TRAMADOL HCL 50 MG TABLET PO PRN (11:23)
== END 2019-12-13 14:27 | disposition home health service (06) | DRG 482 ==
LOC: ED 21:03 → 3N 23:49 → SUATTDRO 23:49 → 3N 12-11 00:01

== ENCOUNTER 2022-02-10 19:01 | Inpatient (IN) ==
[2022-02-10 19:21] LABS: Basophils # (auto) 0.03 K/uL (0-0.2); Basophils % (auto) 0.4 %; Eosinophils # (auto) 0.11 K/uL (0-0.50); Eosinophils % (auto) 1.4 %; Hematocrit (blood only) 41.4 % (34.1-44.9); Hemoglobin 13.5 g/dl (12.0-16.0); Immature Granulocytes # (auto) 0.02 K/uL (0.00-0.02); Immature Granulocytes % (auto) 0.2 %; Lymphocytes # (auto) 2.31 K/uL (1.2-3.4); Lymphocytes % (auto) 28.8 %; Mean Corpuscular Hemoglobin 29.7 pg (25.0-34.0); Mean Corpuscular Hgb Conc 32.6 g/dL (32.0-36.0); Mean Corpuscular Volume 91.2 fL (80.0-100.0); Mean Platelet Volume 10.1 fL (9.4-12.3); Monocytes # (auto) 0.64 K/uL (0.24-0.82); Neutrophils # (auto) 4.91 K/uL (1.4-6.5); Neutrophils % (auto) 61.2 %; Platelet Count 250 K/uL (130-400); RDW Coefficient of Variation 12.5 % (11.5-14.5); RDW Standard Deviation 41.8 fL (36.4-46.3); Red Blood Count 4.54 M/uL (3.93-5.22); White Blood Count 8.02 K/ul (4.8-10.8)
--- NOTE | 2022-02-10 19:22 | Emergency Department Note ---
History of Present Illness General Chief complaint: Chest Pain Stated complaint: CHEST PAIN, JAW PAIN Time Seen by Provider: 02/10/22 19:12 History of Present Illness Maximum Pain Intensity: 6 71-year-old female presents to the ED with a chief complaint of chest pressure. She states that she started noticing it around 2 PM today. It seems to be getting worse as the day went on. She describes it as a constant symptom. The patient also reports that she has had a cough and congestion all week. The pressure is in the left side of the chest. She states that her breathing feels a little uncomfortable. Otherwise denies any diaphoresis, radiation of pain, recent exertional symptoms other than that related to her cold symptoms. No palpitations or lightheadedness. Denies a history of cardiac disease. Reports history of thyroid disease and GERD. Home Medications Medication Instructions Recorded Confirmed Type calcium carbonate 600 mg-vitamin 2 tab PO DAILY 12/10/19 02/10/22 History D3 10 mcg (400 unit) tablet (Calcium 600 + D(3)) levothyroxine 100 mcg tablet 100 mcg PO DAILY 12/10/19 02/10/22 History magnesium oxide 800 mg PO DAILY 12/10/19 02/10/22 History omeprazole 40 mg capsule,delayed 40 mg PO DAILY 12/10/19 02/10/22 History release propranolol 40 mg tablet 120 mg PO QAM 12/10/19 02/10/22 History sertraline 25 mg tablet 50 mg PO Q OTHER DAY 12/10/19 02/10/22 History triamterene 37.5 1 tab PO DAILY 12/10/19 02/10/22 History mg-hydrochlorothiazide 25 mg tablet zonisamide 25 mg capsule 50 mg PO HS 12/10/19 02/10/22 History montelukast 10 mg tablet 10 mg PO QAM 10/05/20 02/10/22 History Allergies Allergy/AdvReac Type Severity Reaction Status Date / Time No Known Allergies Allergy Verified 02/10/22 19:58 Past Med/Surg History Medical History GERD (gastroesophageal reflux disease) HTN (hypertension) Hypothyroid Surgical History H/O thyroidectomy S/P appendectomy S/P cholecystectomy S/P hysterectomy Social History Smoking Status: Never smoker Hx Alcohol Use: No Hx Substance Use: No Preferred Language: Swedish Communication Ability: Effective Beliefs That Will Affect Care: None marital status: Current Living Situation: Spouse Feels Safe at Home: Yes Assistive Devices: Glasses and Walker Review of Systems A total of 10 systems reviewed and were otherwise negative Physical Exam Vital Signs Vital Signs - 24 hr 02/10/22 19:06 02/10/22 19:57 02/10/22 19:58 Temperature 36.2 C L Temperature Source Temporal Artery Scan Pulse Rate 87 Pulse Rate [Left Finger] 75 Pulse Rhythm [Left Finger] Regular Respiratory Rate 20 22 Respiratory Effort / Characteristics Non-Labored Spontaneous Non-Labored Respiratory Depth Normal Normal Blood Pressure 105/71 Blood Pressure [Right Arm] 132/60 Blood Pressure Mean 82 Blood Pressure Mean [Right Arm] 84 Pulse Oximetry 95 99 Oxygen Delivery Method Room Air Room Air Room Air Sepsis New/Unexplained Change in Mental Status N/A Sepsis Action Taken by Nursing No Action Required CONSTITUTIONAL/VITAL SIGNS: Reviewed / noted above. GENERAL: Non-toxic in appearance. INTEGUMENTARY: Warm, dry, and [place]. HEAD: Normocephalic. EYES: without scleral icterus or trauma. ENT/OROPHARYNX: clear and moist. LYMPHADENOPATHY/NECK: Is supple without lymphadenopathy or meningismus. RESPIRATORY: Clear to auscultation bilaterally. No increased work of breathing. CARDIOVASCULAR: Regular rate and rhythm. GI/ABDOMEN: Soft and nontender. No organomegaly or pulsatile mass. EXTREMITIES: Warm and well perfused. BACK: No CVA tenderness. NEUROLOGICAL: Intact without focal deficits. PSYCHIATRIC: normal affect. MUSCULOSKELETAL: Normally developed with good muscle tone. TRIAGE NURSING DOCUMENTATION REVIEWED. Course Administered Medications Discontinued Medications Aspirin (Aspirin Chew 324 Mg) 324 mg PO NOW STA Stop: 02/10/22 19:41 Last Admin: 02/10/22 19:55 Dose: 324 mg Documented By: VAP Enoxaparin Sodium (Enoxaparin 1 Mg/Kg) 80 mg 1 mg/kg (80 mg) SC NOW STA Stop: 02/10/22 20:01 Last Admin: 02/10/22 20:10 Dose: Not Given Documented By: VAP Nitroglycerin (Nitroglycerin Sl 0.4 Mg/Tab Tab) 0.4 mg SL NOW STA Stop: 02/10/22 20:00 Last Admin: 02/10/22 20:09 Dose: 0.4 mg Documented By: PARISA Medical Decision Making Differential Diagnosis The differential that was considered includes acute myocardial infarction, acute coronary syndrome, myocarditis, pericarditis, pericardial effusions /tamponade, esophageal perforation, thoracic aortic dissection, pulmonary embolism, pneumonia, pneumothorax, pancreatitis, shingles, acute cholecystitis, perforated abdominal viscus. Medical Records Attestation: I reviewed the patient's medical records. Home Medications Current Medication List: was personally reviewed by me Laboratory Data Attestation: I reviewed the patient's lab results. Result diagrams: 02/10/22 19:10 02/10/22 19:10 Lab Results 02/10/22 02/10/22 02/10/22 Range/Units 19:10 19:10 19:10 WBC 8.02 (4.8-10.8) K/ul RBC 4.54 (3.93-5.22) M/uL Hgb 13.5 (12.0-16.0) g/dl Hct 41.4 (34.1-44.9) % MCV 91.2 (80.0-100.0) fL MCH 29.7 (25.0-34.0) pg MCHC 32.6 (32.0-36.0) g/dL RDW Std Deviation 41.8 (36.4-46.3) fL RDW Coeff of Remi 12.5 (11.5-14.5) % Plt Count 250 (130-400) K/uL MPV 10.1 (9.4-12.3) fL Immature Gran % (Auto) 0.2 % Neut % (Auto) 61.2 % Lymph % (Auto) 28.8 % [place] % (Auto) 8.0 % Eos % (Auto) 1.4 % Baso % (Auto) 0.4 % Neut # (Auto) 4.91 (1.4-6.5) K/uL Lymph # (Auto) 2.31 (1.2-3.4) K/uL [place] # (Auto) 0.64 (0.24-0.82) K/uL Eos # (Auto) 0.11 (0-0.50) K/uL Baso # (Auto) 0.03 (0-0.2) K/uL Immature Gran # (Auto) 0.02 (0.00-0.02) K/uL PT 10.4 (9.0-12.0) Seconds INR 1.0 (0.9-1.1) APTT 27.9 (21.0-31.0) Seconds PTT Ratio 1.0 Sodium 139 (136-145) mmol/L Potassium 4.1 (3.5-5.1) mmol/L Chloride 98 (98-107) mmol/L Carbon Dioxide 32 (21-32) mmol/L Anion Gap 9 (3-11) BUN 17 (6-23) mg/dl Creatinine 0.91 (0.6-1.2) mg/dl Est Cr Clr Drug Dosing 54.3 ml/min Est GFR ( Amer) 74.1 ml/min Est GFR (Non-Af Amer) 63.9 ml/min BUN/Creatinine Ratio 18.7 (10-20) Glucose 136 H (70-99(Fasting)) mg/dl Calcium 9.8 (8.5-10.1) mg/dl Total Bilirubin 0.6 (0.2-1.0) mg/dl AST 25 (13-39) U/L ALT 25 (7-52) U/L Alkaline Phosphatase 55 (34-104) U/L Troponin I High Sens 138.1 H* (0-14) pg/ml Total Protein 7.6 (6.0-8.3) gm/dl Albumin 4.0 (3.4-5.0) gm/dl Globulin 3.6 (2.5-4.0) gm/dl Albumin/Globulin Ratio 1.1 (0.9-2) SARS-CoV-2, RNA, NAAT (NEGATIVE) 02/10/22 Range/Units 20:00 WBC (4.8-10.8) K/ul RBC (3.93-5.22) M/uL Hgb (12.0-16.0) g/dl Hct (34.1-44.9) % MCV (80.0-100.0) fL MCH (25.0-34.0) pg MCHC (32.0-36.0) g/dL RDW Std Deviation (36.4-46.3) fL RDW Coeff of Remi (11.5-14.5) % Plt Count (130-400) K/uL MPV (9.4-12.3) fL Immature Gran % (Auto) % Neut % (Auto) % Lymph % (Auto) % [place] % (Auto) % Eos % (Auto) % Baso % (Auto) % Neut # (Auto) (1.4-6.5) K/uL Lymph # (Auto) (1.2-3.4) K/uL [place] # (Auto) (0.24-0.82) K/uL Eos # (Auto) (0-0.50) K/uL Baso # (Auto) (0-0.2) K/uL Immature Gran # (Auto) (0.00-0.02) K/uL PT (9.0-12.0) Seconds INR (0.9-1.1) APTT (21.0-31.0) Seconds PTT Ratio Sodium (136-145) mmol/L Potassium (3.5-5.1) mmol/L Chloride (98-107) mmol/L Carbon Dioxide (21-32) mmol/L Anion Gap (3-11) BUN (6-23) mg/dl Creatinine (0.6-1.2) mg/dl Est Cr Clr Drug Dosing ml/min Est GFR ( Amer) ml/min Est GFR (Non-Af Amer) ml/min BUN/Creatinine Ratio (10-20) Glucose (70-99(Fasting)) mg/dl Calcium (8.5-10.1) mg/dl Total Bilirubin (0.2-1.0) mg/dl AST (13-39) U/L ALT (7-52) U/L Alkaline Phosphatase (34-104) U/L Troponin I High Sens (0-14) pg/ml Total Protein (6.0-8.3) gm/dl Albumin (3.4-5.0) gm/dl Globulin (2.5-4.0) gm/dl Albumin/Globulin Ratio (0.9-2) SARS-CoV-2, RNA, NAAT POSITIVE A* (NEGATIVE) Imaging Data Radiologist's Impression: Chest X-Ray 02/10/22 19:09 XR chest 1V portable HISTORY: Atypical Chest Pain COMPARISON: Chest 12/10/2019. FINDINGS: No pneumothorax. No pleural effusions. There are low lung volumes with elevation of the right hemidiaphragm, unchanged. The heart remains mildly enlarged. No new focal lung consolidations to suggest pneumonia. No evidence for pulmonary edema. There are surgical clips within the left neck base. A 5 mm nodular density within the right upper lobe likely represents a normal pulmonary vessel. This remains stable. IMPRESSION: No significant change compared to the prior study. No acute process. ACT 112: Negative or not required by law. Electronically signed by: Reji Evans M.D. 02/10/2022 8:18 PM ECG Data Attestation: I personally reviewed and interpreted this ECG as follows: Additional Comments: Twelve-lead EKG: Per my interpretation shows a sinus rhythm at a rate of 75. T wave inversions in V1 and V2. No ST elevation. No PVCs. Normal QTC. Compared to an EKG from December 12, 2019, T wave inversions appear to be new. MDM Narrative 71-year-old female presents with chest discomfort in the setting of a recent upper respiratory infection. Twelve-lead EKG today shows a sinus rhythm with some T wave inversions in V1 and V2 that seem to be new compared to an EKG from 2019. Troponin is elevated. COVID test was positive. The patient was given aspirin p.o. She was given 1 sublingual nitroglycerin because her blood pressure did drop to around 90 systolic. She was given a 500 cc normal saline bolus which improved her blood pressure. She does state that she did have improvement of her chest discomfort after the nitroglycerin. Lovenox was ordered but discontinued prior to being given by the hospitalist service. They will see the patient for further inpatient evaluation and care. Impression & Plan Non-ST elevation (NSTEMI) myocardial infarction, COVID Discharge Plan Visit Data Chief Complaint: Chest Pain Stated Complaint: CHEST PAIN, JAW PAIN ED Provider: Ras Joaquin Discharge Problem: Non-ST elevation (NSTEMI) myocardial infarction, COVID Patient Disposition: Being Evaluated by Hospitalist Forms Stand Alone Forms: My [facility] Prescriptions Prescriptions: No Action omeprazole 40 mg Capsule,Delayed Release(Dr/Ec) 40 mg PO DAILY levothyroxine 100 mcg Tablet 100 mcg PO DAILY propranolol 40 mg Tablet 120 mg PO QAM sertraline 25 mg Tablet 50 mg PO Q OTHER DAY Rx Instructions: ORDER WRITTEN 25 MG DAILY, PT TAKES 50 MG Q OTHER DAY. triamterene-hydrochlorothiazid 37.5-25 mg Tablet 1 tab PO DAILY zonisamide 25 mg Capsule 50 mg PO HS calcium carbonate-vitamin D3 [Calcium 600 + D(3)] 600 mg(1,500mg) -400 unit Tablet 2 tab PO DAILY magnesium oxide 400 mg magnesium Tablet 800 mg PO DAILY montelukast 10 mg tablet 10 mg PO QAM Referrals Referrals: Kadeem Manrique MD [Hospitalist] -
[2022-02-10 19:39] LABS: Partial Thromboplastin Time 27.9 Seconds (21.0-31.0); Prothrombin Time 10.4 Seconds (9.0-12.0)
[2022-02-10] MEDS ORDERED: ASPIRIN CHEW 324 MG PO STA (19:40)
[2022-02-10 19:44] LABS: Albumin Globulin Ratio 1.1 (0.9-2); BUN Creatinine Ratio 18.7 (10-20); Bilirubin,Total 0.6 mg/dl (0.2-1.0); Calcium 9.8 mg/dl (8.5-10.1); Creatinine Clr Calc Pharmacy 54.3 ml/min; Est GFR (African American) 74.1 ml/min; Est GFR (Non-African American) 63.9 ml/min; Globulin 3.6 gm/dl (2.5-4.0); Potassium 4.1 mmol/L (3.5-5.1); Total Protein 7.6 gm/dl (6.0-8.3)
[2022-02-10 19:53] LABS: Troponin I High Sensitivity 138.1 pg/ml (0-14)
[2022-02-10] MEDS ORDERED: NITROGLYCERIN SL 0.4 MG/TAB TAB SL STA ×2 (19:59→21:23)
[2022-02-10] MEDS ORDERED: ENOXAPARIN 1 MG/KG SC STA (20:00)
--- NOTE | 2022-02-10 20:19 | XRay Report ---
XR chest 1V portable HISTORY: Atypical Chest Pain COMPARISON: Chest 12/10/2019. FINDINGS: No pneumothorax. No pleural effusions. There are low lung volumes with elevation of the rig ht hemidiaphragm, unchanged. The heart remains mildly enlarged. No new focal lung consolidations to s uggest pneumonia. No evidence for pulmonary edema. There are surgical clips within the left neck base . A 5 mm nodular density within the right upper lobe likely represents a normal pulmonary vessel. Thi s remains stable. IMPRESSION: No significant change compared to the prior study. No acute process. ACT 112: Negative or not required by law. Electronically signed by: Reji Evans M.D. 02/10/2022 8:18 PM
--- NOTE | 2022-02-10 20:23 | History & Physical Report ---
Date of Service February 10, 2022 Assessment & Plan (1) Chest pain: Plan: Kary Villa is a 71-year-old female with past medical history of GERD, HTN, asthma, hypothyroidism, depression who arrived at [facility] due to chest pressure. Chest pain Patient does not have prior history of cardiac disease, but left-sided chest pain that was relieved by nitroglycerin as well as EKG findings and elevated troponin make ACS the most likely etiology Initial troponin elevated to 138.[address] abnormalities of inferior leads initially but poor quality tracing repeat EKG without ST elevations Additional troponins ordered, continue to trend Received aspirin 324mg in ED Received nitroglycerin 0.4 mg x1 which resolved pain but then had recurrence a few hours later Repeat EKG at that time did not show any ST elevations, pain was relieved with second nitroglycerin dose Continue nitroglycerin as needed for chest pain Morphine as needed ordered if nitroglycerin ineffective Cardiology consulted discussed case with Dr. Levi; will plan to control p atient's chest pain and if unable to may need catheterization more urgently N.p.o. for possible catheterization Echocardiogram ordered Lipid profile, CMP, CBC in the morning Admit to telemetry for cardiac monitoring COVID-19 Patient does admit to some mild upper respiratory symptoms over the preceding week No shortness of breath, no hypoxia Ordered single dose of dexamethasone 6 mg for adrenal support Consider continuation of treatment depending on patient's respiratory status Isolation precautions Hypertension Propranolol orally placed on hold on admission while n.p.o. Will likely require ÉHCTOR/ARB along with beta-blockade Chronic issues Hypothyroidism: Hold Synthroid at this time while n.p.o. Asthma: Hold montelukast at this time while n.p.o., albuterol as needed GERD hold home oral omeprazole, pantoprazole IV here while n.p.o. Depression: Hold home sertraline at this time while n.p.o. DVT prophylaxis: On heparin drip Diet: N.p.o. Dispo: Admit to telemetry for cardiac monitoring CODE STATUS: Full (2) COVID: (3) Sleep apnea: (4) Asthma: (5) Hypothyroid: (6) HTN (hypertension): (7) GERD (gastroesophageal reflux disease): History of Present Illness Primary Care Provider: NO PCP Kary Villa is a 71-year-old female with past medical history of GERD, HTN, asthma, hypothyroidism, depression who arrived at [facility] due to chest pressure of 5 hours duration. She states her pain started around 2 PM today. It was about a 6-8 out of 10 in intensity and located on the left side of her chest. No real radiation. She did not feel short of breath, dizzy, nauseous. Patient does state that over the preceding week she had some mild upper respiratory symptoms including congestion, cough and that her had similar symptoms. He tested positive for COVID. She had not tested positive for COVID thus far but was not surprised to learn of her COVID-positive status on admission. The patient denies any significant cardiac history. Has never had similar chest pain before. At this time denying radiation of pain, sweating, swelling, palpitations, shortness of breath, lightheadedness, headache, nausea, vomiting, abdominal pain. In the ED received aspirin 324 mg x 1, nitroglycerin 0.4 SL x1. EKG initially concerning for ST elevations in inferior leads, though quality was less than ideal. Repeat EKG at time of chest pain recurrence showing no ST elevations. He then received an additional dose of nitroglycerin 0.4 mg SL. Started on heparin drip. Received NSS bolus x1. Troponin mildly elevated to 138. Allergies Allergy/AdvReac Type Severity Reaction Status Date / Time No Known Allergies Allergy Verified 02/10/22 19:58 Home Medications Medication Instructions Recorded Confirmed Type calcium carbonate 600 mg-vitamin 2 tab PO DAILY 12/10/19 02/10/22 History D3 10 mcg (400 unit) tablet (Calcium 600 + D(3)) levothyroxine 100 mcg tablet 100 mcg PO DAILY 12/10/19 02/10/22 History magnesium oxide 800 mg PO DAILY 12/10/19 02/10/22 History omeprazole 40 mg capsule,delayed 40 mg PO DAILY 12/10/19 02/10/22 History release propranolol 40 mg tablet 120 mg PO QAM 12/10/19 02/10/22 History sertraline 25 mg tablet 50 mg PO Q OTHER DAY 12/10/19 02/10/22 History triamterene 37.5 1 tab PO DAILY 12/10/19 02/10/22 History mg-hydrochlorothiazide 25 mg tablet zonisamide 25 mg capsule 50 mg PO HS 12/10/19 02/10/22 History montelukast 10 mg tablet 10 mg PO QAM 10/05/20 02/10/22 History Past Med/Surg History Medical History GERD (gastroesophageal reflux disease) HTN (hypertension) Hypothyroid Surgical History H/O thyroidectomy S/P appendectomy S/P cholecystectomy S/P hysterectomy Social History Smoking Status: Never smoker Hx Alcohol Use: No Hx Substance Use: No Preferred Language: Libyan Communication Ability: Effective 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 NAD. HEENT: PERRL, EOMI. Moist mucous membranes. NECK: No JVD. No lymphadenopathy. CHEST/LUNGS: CTAB A/P. No crackles, wheezes, rales, rhonchi. HEART: RRR. No m/g/r. No carotid bruits. ABDOMEN: NT/ND, soft. BS+ x4 EXTREMITIES: No cyanosis, no clubbing, no edema SKIN: Warm and dry. No rashes or lesions. PSYCHIATRIC: Euthymic affect, no SI, no pressured speech, no hallucinations NEUROLOGIC: No FND. CN II-XII grossly intact. Results & Data Results & Data ([facility]) Vital Signs (Past 12 Hours) Vital Signs Temp Pulse Pulse Resp BP BP Pulse Ox 02/10/22 19:58 02/10/22 19:57 75 22 132/60 99 02/10/22 19:06 36.2 C L 87 20 105/71 95 O2 Del Method 02/10/22 19:58 Room Air 02/10/22 19:57 Room Air 02/10/22 19:06 Room Air Supervising Physician Co-Signing Physician Notes Attending addendum: I have physically seen this patient, have supervised the medical residents activities, and agree with the H&P unless as otherwise noted. Assessment and Plan: Acute coronary syndrome/hypertension- The patient will be admitted to telemetry for serial cardiac enzymes, serial EKG's, cardiac rhythm monitoring and a 2-D echocardiogram with Dopplers. Initial troponin elevation 138.[address] segment changes inferiorly Status post aspirin 324 mg in ED Improvement with sublingual nitroglycerin, with significant lowering of blood pressure to systolic 82 Case discussed with interventional cardiology Dr. Levi, who advises continued medical treatment and will likely catheterization in the morning Heparin drip started per protocol IV fluids for blood pressure support monitor closely overnight COVID-19 infection- May be an adrenal insufficiency, pulm Give dexamethasone 6 mg IV now, and follow clinical examination Order CT a chest to assess for possible pericardial effusion and associated myopericarditis Remaining orders and notations as noted Resident Activity Tracking Resident Involvement: Resident Care Provided Care Provided: Adult Hospital Medicine
[2022-02-10] MEDS ORDERED: SODIUM CHLORIDE 0.9% 1000ML 1,000 ML IV ONE (21:35)
[2022-02-10] MEDS ORDERED: HEPARIN 25000 UNIT/500 ML D5W IV ONE (21:50)
[2022-02-10] MEDS ORDERED: HEPARIN SOD (PORCINE) 1000 UNIT/ML ONE (21:50)
[2022-02-10] MEDS ORDERED: dexAMETHasone 6 MG in SYRINGE 0 ML IV ONE (22:15)
[2022-02-10] MEDS ORDERED: NITROGLYCERIN SL 0.4 MG/TAB TAB SL PRN (22:50)
[2022-02-10] MEDS ORDERED: ONDANSETRON INJ 2 MG/ML 2 ML VIAL IV PRN (22:50)
[2022-02-10] MEDS ORDERED: HEPARIN SODIUM/DEXTROSE 25,000 UNITS/500 ML BAG IV SCH (22:50)
[2022-02-10] MEDS ORDERED: ACETAMINOPHEN 325 MG TAB PO PRN (22:50)
[2022-02-10] MEDS ORDERED: MoRPHine SULFATE 2 MG/ML CARP IV PRN (22:50)
[2022-02-10] MEDS ORDERED: POLYETHYLENE (MIRALAX) 17 GM PACK PO PRN (22:50)
[2022-02-10] MEDS ORDERED: HEPARIN SOD (PORCINE) 1000 UNIT/ML IV ONE (22:50)
[2022-02-10] MEDS ORDERED: Heparin IV Adult Wt-Based Standard WITH Bolus Protocol IV SCH (22:56)
[2022-02-10] MEDS: SODIUM CHLORIDE 0.9% 1000ML 1,000 ML IV SCH (23:14)
[2022-02-11 06:35] LABS: Hematocrit (blood only) 36.3 % (34.1-44.9); Hemoglobin 11.9 g/dl (12.0-16.0); Mean Corpuscular Hemoglobin 30.4 pg (25.0-34.0); Mean Corpuscular Hgb Conc 32.8 g/dL (32.0-36.0); Mean Corpuscular Volume 92.8 fL (80.0-100.0); Mean Platelet Volume 10.8 fL (9.4-12.3); Platelet Count 191 K/uL (130-400); RDW Coefficient of Variation 12.7 % (11.5-14.5); RDW Standard Deviation 43.4 fL (36.4-46.3); Red Blood Count 3.91 M/uL (3.93-5.22); White Blood Count 5.06 K/ul (4.8-10.8)
[2022-02-11 07:01] LABS: Albumin Globulin Ratio 1.2 (0.9-2); Albumin Level 3.5 gm/dl (3.4-5.0); BUN Creatinine Ratio 20.3 (10-20); Bilirubin,Total 0.6 mg/dl (0.2-1.0); Calcium 8.4 mg/dl (8.5-10.1); Chol HDL Ratio 5.7 (0-5); Creatinine Clr Calc Pharmacy 71.6 ml/min; Est GFR (African American) 102.2 ml/min; Est GFR (Non-African American) 88.2 ml/min; Globulin 2.9 gm/dl (2.5-4.0); Magnesium 1.7 mg/dl (1.7-2.4); Total Protein 6.4 gm/dl (6.0-8.3)
[2022-02-11 07:09] LABS: Troponin I High Sensitivity 3884.3 pg/ml (0-14)
--- NOTE | 2022-02-11 07:18 | Electrocardiogram Report ---
Test Reason : Blood Pressure : / mmHG Vent. Rate : 075 BPM Atrial Rate : 077 BPM P-R Int : 186 ms QRS Dur : 074 ms QT Int : 380 ms P-R-T Axes : 020 011 061 degrees QTc Int : 424 ms Poor data quality, interpretation may be adversely affected Normal sinus rhythm Nonspecific ST abnormality Abnormal ECG When compared with ECG of 12-DEC-2019 00:10, HI interval has decreased Vent. rate has decreased BY 50 BPM Confirmed by Stan Suarez ([id number]) on 02/11/2022 7:18:37 AM Referred By: REFERRED SELF Confirmed By:Cade Suarez
[2022-02-11 07:20] LABS: Basophils # (auto) 0.01 K/uL (0-0.2); Basophils % (auto) 0.2 %; Eosinophils # (auto) 0.01 K/uL (0-0.50); Eosinophils % (auto) 0.2 %; Immature Granulocytes # (auto) 0.01 K/uL (0.00-0.02); Immature Granulocytes % (auto) 0.2 %; Lymphocytes # (auto) 1.16 K/uL (1.2-3.4); Lymphocytes % (auto) 22.9 %; Neutrophils # (auto) 3.77 K/uL (1.4-6.5); Neutrophils % (auto) 74.5 %; Tear Drop Cells 1+
--- NOTE | 2022-02-11 07:21 | Electrocardiogram Report ---
Test Reason : Blood Pressure : / mmHG Vent. Rate : 069 BPM Atrial Rate : 069 BPM P-R Int : 182 ms QRS Dur : 074 ms QT Int : 418 ms P-R-T Axes : 006 007 051 degrees QTc Int : 447 ms Normal sinus rhythm Normal ECG When compared with ECG of 10-FEB-2022 19:11, (unconfirmed) No significant change was found Confirmed by Stan Suarez ([id number]) on 02/11/2022 7:20:47 AM Referred By: REFERRED SELF Confirmed By:Cade Suarez
--- NOTE | 2022-02-11 07:39 | Hospitalist Progress Note ---
Date of Service February 11, 2022 Assessment & Plan (1) Non-ST elevation (NSTEMI) myocardial infarction: Plan: Pain/pressure with some radiation from bottom of left chest up the center and terminating at the shoulder. Associated with dyspnea with exertion. Pain reli eved with NTG EKG showing ST abnormalities of inferior leads initially but poor quality tracing repeat EKG without ST elevations and further ECGs without dynamic changes Received aspirin 324mg in ED- continue daily 81mg Continue nitroglycerin as needed for chest pain Cardiology consulted to interventional suite this morning N.p.o.- advance diet as tolerated following if able Echocardiogram ordered Lipid profile, CMP, CBC in the morning Continue telemetry - Plavix load and carry on ordered by Cardiology - Statin initiated- atorvastatin 80mg - HÉCTOR/ARB addition likely S/P 2 SHARON 02/11/22 (2) Asthma: Plan: Well controlled rarely uses her albuterol. She used it yesterday to see if symptoms would improve and they did not - continue her montelukast - prn albuterol inh - not propanolol use- she has not noted any worsening of symptoms on this (3) COVID: Plan: COVID-19 Patient does admit to some mild upper respiratory symptoms over the preceding week- unsure of day of illness dyspnea with exertion is likely cardiac related, no hypoxia received single dose of dexamethasone 6 mg on admit- no further dosing at this time supportive care at this time Isolation precautions (4) Tremor: Plan: Propanolol continue - following cath likely need transition to B1 BB (5) Hypothyroid: Plan: Continue synthroid (6) HTN (hypertension): Plan: Hypertension Propranolol continue transition to B1 with addition of ARB if pressures tolerate - pending cardiology evaluation Will likely require HÉCTOR/ARB along with beta-blockade- addition following cardiac evaluation (7) GERD (gastroesophageal reflux disease): Plan: Continue PPI Admission and Anticipated Discharge Date Admission Date: February 10, 2022 Subjective HD#1 - NSTEMI- Patient reports feeling well overnight, she did have another episode of chest pressure early this morning again relieved with SL NTG. Her cardiac biomarkers continue upward trend, however her ECG changes from admission have resolved and ECG this morning is without acute dynamic changes. Remains ch est pain/ ECHO was done this morning and awaiting evaluation. Appreciate Cardiology evaluation. To computer lab para professional today. Review of Systems Review of Systems: REVIEW OF SYSTEMS: Constitutional: No fever, sweats or chills Eyes: No diplopia, no worsening or blurred vision ENT: normal hearing, no trouble swallowing Respiratory: (+) dyspnea with exertion, No cough, sputum, Cardiovascular: (+) ches pressure, No chest pain, tightness or palpitations Abdomen: No pain, nausea, vomiting, diarrhea or constipation Musculoskeletal: No joint pain, calf pain, swelling Neurologic: No weakness, numbness/tingling, or balance problems Psychiatric: No anxiety or depression Skin: No rash or itch Physical Exam Physical Exam: PHYSICAL EXAM: General: awake, alert, no apparent distress Head: Normocephalic, atraumatic ENT: PERRL, EOMI, no pharyngeal exudate, mucous membranes moist Neuro: AAO x 3, speech clear and appropriate, strength intact bilaterally 5/5, sensation intact and equal all extremities and dermatomes, no pronator drift Chest: equal rise and fall of the chest, no accessory muscle use, no heaves or thrills, Clear to auscultation, on room air, Cardiac: Regular rate and rhythm, telemetry reviewed- NSR no acute events, skin warm dry, cap refill <3 seconds, peripheral pulses +2 no JVD, no murmur, no edema GI: NABS x 4 quadrants, soft, nontender to palpation, no rebound, guarding or tenderness : Spontaneously voiding, no pain, no CVA tenderness, Extremities: Normal inspection, no peripheral edema or erythema, calfs nontender to palpation Psych: Normal mood and affect Skin: no rash or erythema Results & Data Results & Data ([facility]) Vital Signs (Past 12 Hours) Vital Signs Temp Pulse Pulse Resp BP Pulse Ox O2 Del Method 02/11/22 03:00 36.9 C 74 16 117/61 90 Room Air 02/10/22 23:07 58 L 02/10/22 22:31 56 L 02/10/22 21:45 103/55 L 02/10/22 21:35 82/48 L 02/10/22 22:02 56 L 16 102/53 L 99 Room Air 02/10/22 21:01 60 18 113/58 L 98 Room Air 02/10/22 20:30 61 20 120/63 99 Room Air 02/10/22 19:58 Room Air 02/10/22 19:57 75 22 132/60 99 Room Air Laboratory Results Abnormal lab results 02/10/22 02/10/22 02/10/22 Range/Units 19:10 20:00 23:31 RBC (3.93-5.22) M/uL Hgb (12.0-16.0) g/dl Lymph # (Auto) (1.2-3.4) K/uL [place] # (Auto) (0.24-0.82) K/uL APTT (21.0-31.0) Seconds BUN/Creatinine Ratio (10-20) Glucose 136 H (70-99(Fasting)) mg/dl Calcium (8.5-10.1) mg/dl Troponin I High Sens 138.1 H* 1878.4 H* D (0-14) pg/ml Cholesterol/HDL Ratio (0-5) SARS-CoV-2, RNA, NAAT POSITIVE A* (NEGATIVE) 02/11/22 02/11/22 02/11/22 Range/Units 05:28 05:28 05:28 RBC 3.91 L (3.93-5.22) M/uL Hgb 11.9 L (12.0-16.0) g/dl Lymph # (Auto) 1.16 L (1.2-3.4) K/uL [place] # (Auto) 0.10 L (0.24-0.82) K/uL APTT 82.0 H* (21.0-31.0) Seconds BUN/Creatinine Ratio 20.3 H (10-20) Glucose 160 H (70-99(Fasting)) mg/dl Calcium 8.4 L (8.5-10.1) mg/dl Troponin I High Sens 3884.3 H* D (0-14) pg/ml Cholesterol/HDL Ratio 5.7 H (0-5) SARS-CoV-2, RNA, NAAT (NEGATIVE) Medications Administered Home Medications calcium carbonate 600 mg-vitamin D3 10 mcg (400 unit) tablet (Calcium 600 + D(3)) 2 tab PO DAILY 12/10/19 [History Confirmed 02/10/22] levothyroxine 100 mcg tablet 100 mcg PO DAILY 12/10/19 [History Confirmed 02/10/22] magnesium oxide 800 mg PO DAILY 12/10/19 [History Confirmed 02/10/22] omeprazole 40 mg capsule,delayed release 40 mg PO DAILY 12/10/19 [History Confirmed 02/10/22] propranolol 40 mg tablet 120 mg PO QAM 12/10/19 [History Confirmed 02/10/22] sertraline 25 mg tablet 50 mg PO Q OTHER DAY 12/10/19 [History Confirmed 02/10/22] triamterene 37.5 mg-hydrochlorothiazide 25 mg tablet 1 tab PO DAILY 12/10/19 [History Confirmed 02/10/22] zonisamide 25 mg capsule 50 mg PO HS 12/10/19 [History Confirmed 02/10/22] montelukast 10 mg tablet 10 mg PO QAM 10/05/20 [History Confirmed 02/10/22] Active Medications Acetaminophen (Acetaminophen 325 Mg Tab) 650 mg PO Q4H PRN PRN Reason: Pain or Fever Stop: 03/12/22 22:49 Clopidogrel Bisulfate (Clopidogrel Bisulfate 300 Mg Tab) 600 mg PO NOW STA Stop: 02/11/22 10:23 Sodium Chloride (Nss 1000ml) 1,000 mls @ 80 mls/hr IV .[id number] [facility] Stop: 03/12/22 22:49 Last Admin: 02/10/22 23:14 Dose: 80 mls/hr Heparin Sodium/Dextrose (Heparin Sodium/Dextrose) 25,000 units in 500 mls @ 20 mls/hr IV .Q24H HIMANSHU; Protocol Stop: 03/12/22 22:49 Last Titration: 02/11/22 07:02 Dose: 1,000 units/hr, 20 mls/hr Pantoprazole Sodium 40 mg/ (Syringe) 10 mls @ 5 mls/min IV DAILY@1100 [facility] Stop: 03/13/22 10:59 Levothyroxine Sodium (Levothyroxine Sodium 100 Mcg Tablet) 100 mcg PO DAILYBB [facility] Stop: 03/13/22 08:59 Last Admin: 02/11/22 08:21 Dose: Not Given Miscellaneous (Zonisamide 50mg-Order Awaiting Action) 1 each N/A QS [facility] Stop: 03/13/22 08:14 Last Admin: 02/11/22 08:21 Dose: Not Given Montelukast Sodium (Montelukast Sodium 10 Mg Tablet) 10 mg PO QAM [facility] Stop: 03/13/22 08:59 Last Admin: 02/11/22 08:19 Dose: Not Given Morphine Sulfate (Morphine Sulfate 2 Mg/Ml Carp) 2 mg IV Q30M PRN PRN Reason: Chest Pain Stop: 02/24/22 22:49 Nitroglycerin (Nitroglycerin Sl 0.4 Mg/Tab Tab) 0.4 mg SL UD PRN PRN Reason: Chest Pain Stop: 03/12/22 22:49 Last Admin: 02/10/22 23:11 Dose: 0.4 mg Ondansetron HCl (Ondansetron Inj 2 Mg/Ml 2 Ml Vial) 4 mg IV Q6H PRN PRN Reason: Nausea Stop: 03/12/22 22:49 Pantoprazole Sodium (Pantoprazole 40 Mg Tab) 40 mg PO DAILY HIMANSHU Stop: 03/13/22 08:59 Last Admin: 02/11/22 08:19 Dose: Not Given Polyethylene Glycol (Polyethylene (Miralax) 17 Gm Pack) 17 gm PO DAILY PRN PRN Reason: Constipation Stop: 03/12/22 22:49 Propranolol HCl (Propranolol Hcl 80 Mg Tab) 120 mg PO QAM HIMAN[facility]U Stop: 03/13/22 08:59 Last Admin: 02/11/22 08:19 Dose: Not Given ECG Additional Comments: Normal sinus rhythm Low voltage QRS Borderline ECG When compared with ECG of 10-FEB-2022 21:28, No significant change was found PG Care Time/CCT Total # of Minutes Spent Total Time Spent with Patient: Total time spent is greater than 50% in coordination of care (as documented) at patient's floor/unit and/or counseling patient: Coding Level of Care Code 83548 Subseq Hosp Care Lvl 3 Diagnoses Non-ST elevation (NSTEMI) myocardial infarction I21.4 Asthma J45.909 COVID U07.1 Tremor R25.1 Hypothyroid E03.9 HTN (hypertension) I10 GERD (gastroesophageal reflux disease) K21.9
[2022-02-11] MEDS: MONTELUKAST SODIUM 10 MG TABLET PO SCH (08:19)
[2022-02-11] MEDS: PROPRANOLOL HCL 80 MG TAB PO SCH (08:19)
[2022-02-11] MEDS: PANTOprazole 40 MG TAB PO SCH (08:19)
[2022-02-11] MEDS: LEVOTHYROXINE SODIUM 100 MCG TABLET PO SCH (08:21)
--- NOTE | 2022-02-11 09:04 | Cardiology Consultation ---
Date of Consultation February 11, 2022 Assessment & Plan (1) Non-ST elevation (NSTEMI) myocardial infarction: (2) Asthma: (3) COVID: Plan 1. NSTEMI: Patient clearly had a cardiac injury. Her symptoms are consistent with an acute coronary syndrome. Currently pain-free. This point will continue systemic heparinization, daily aspirin and beta-blockade. will plan atorvastatin and HÉCTOR-inhibitor depending on her echocardiography. She was advised to have coronary angiography. She is familiar with the procedure as her had this done recently. I described the risks of the procedure and will plan to proceed within the next few days. In the and 2. Asthma: Curiously on nonselective beta-yomi. However, she is not appear to have breathing trouble most of the time and only rarely uses her inhaler. 3. COVID-19: No overt symptoms. Unclear relationship between her infection and NSTEMI. Currently isolation. History of Present Illness Reason for Consultation: NSTEMI Requesting Physician: Mg Attending Physician: Jai Smart DO History of Present Illness the patient is a 71-year-old woman without a known history of cardiac disease who began experience symptoms chest discomfort yesterday around 2:00 p.m.. Patient was at rest at that time. She describes the symptom as a pressure or burning sensation involving the left side of her neck, left precordial area and epigastrium. this symptom waxed and waned in severity but did not go away with any specific maneuvers. It did not appear to radiate to the back. There were no associated symptoms such as shortness of breath or diaphoresis. She cannot recall similar symptoms in the past. The patient did try to use an albuterol inhaler without good effect. Due to the persistent nature of her symptoms she elected to present to the emergency room for evaluation. She was given some nitroglycerin which significantly improved her symptoms. She was pain-free for a brief period, but later her symptoms recurred requiring additional administration nitroglycerin. She is an otherwise active individual who is accustomed to routine housework and yd work. 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 She has not had symptoms of exertional chest pain or limiting dyspnea. She almost never uses her inhaler for asthma. She did report having an upper respiratory illness a couple of weeks ago. Her is currently at home with respiratory symptoms and is known to be COVID positive. Allergies Allergy/AdvReac Type Severity Reaction Status Date / Time No Known Allergies Allergy Verified 02/10/22 19:58 Home Medications Medication Instructions Recorded Confirmed Type calcium carbonate 600 mg-vitamin 2 tab PO DAILY 12/10/19 02/10/22 History D3 10 mcg (400 unit) tablet (Calcium 600 + D(3)) levothyroxine 100 mcg tablet 100 mcg PO DAILY 12/10/19 02/10/22 History magnesium oxide 800 mg PO DAILY 12/10/19 02/10/22 History omeprazole 40 mg capsule,delayed 40 mg PO DAILY 12/10/19 02/10/22 History release propranolol 40 mg tablet 120 mg PO QAM 12/10/19 02/10/22 History sertraline 25 mg tablet 50 mg PO Q OTHER DAY 12/10/19 02/10/22 History triamterene 37.5 1 tab PO DAILY 12/10/19 02/10/22 History mg-hydrochlorothiazide 25 mg tablet zonisamide 25 mg capsule 50 mg PO HS 12/10/19 02/10/22 History montelukast 10 mg tablet 10 mg PO QAM 10/05/20 02/10/22 History Patient History Medical History GERD (gastroesophageal reflux disease) HTN (hypertension) Hypothyroid Surgical History H/O thyroidectomy S/P appendectomy S/P cholecystectomy S/P hysterectomy Social History Smoking Status: Never smoker Hx Alcohol Use: No Hx Substance Use: No Preferred Language: Kinyarwanda Communication Ability: Effective Supervisor Hydrochloric Area Required: No Beliefs That Will Affect Care: None marital status: Current Living Situation: Spouse Feels Safe at Home: Yes Safety Concerns: Feels Safe At This Time Assistive Devices: Glasses and Walker Review of Systems Review of Systems: Per HPI Physical Exam Physical Exam: She is alert and oriented x3. Mood affect appear normal. She answered all questions appropriately. HEENT: Sclerae are anicteric. Pupils are equal and reactive to light and accommodation. Extraocular movements were intact. Neuro: Cranial nerves intact ( wearing mask) Neck: Examination of the submandibular region did not reveal any significant lymphadenopathy. Carotids are palpable bilaterally and free of bruits on auscultation. There was no evidence of jugular venous distention. The thyroid was not enlarged. Lungs: Lungs are clear to auscultation bilaterally. There are no rales wheezes or rhonchi. She has normal respiratory effort without use of accessory muscles. There is normal pulmonary excursion. Cardiac: The rhythm was regular. S1 and S2 were normal. There are no murmurs on examination. The PMI was not markedly displaced on palpation. Abdomen: The abdomen was soft and nontender. Extremities: Patient has bilateral radial pulses that are equal in intensity. There is no evidence cyanosis or clubbing. There was no evidence of significant peripheral edema bilaterally. Skin: There are no rashes noted on examination today. Results & Data ([facility]) Vital Signs (Past 12 Hours) Vital Signs Temp Pulse Pulse Resp BP Pulse Ox O2 Del Method 02/11/22 08:35 61 02/11/22 08:35 Room Air 02/11/22 07:57 36.5 C 112/62 02/11/22 03:00 36.9 C 74 16 117/61 90 Room Air 02/10/22 23:07 58 L 02/10/22 22:31 56 L 02/10/22 21:45 103/55 L 02/10/22 21:35 82/48 L 02/10/22 22:02 56 L 16 102/53 L 99 Room Air 02/10/22 21:01 60 18 113/58 L 98 Room Air Laboratory Results Abnormal Lab Results 02/10/22 02/10/22 02/10/22 19:10 19:10 19:10 WBC 8.02 RBC 4.54 Hgb 13.5 Hct 41.4 MCV 91.2 MCH 29.7 MCHC 32.6 RDW Std Deviation 41.8 RDW Coeff of Remi 12.5 Plt Count 250 MPV 10.1 Immature Gran % (Auto) 0.2 Neut % (Auto) 61.2 Lymph % (Auto) 28.8 [place] % (Auto) 8.0 Eos % (Auto) 1.4 Baso % (Auto) 0.4 Neut # (Auto) 4.91 Lymph # (Auto) 2.31 [place] # (Auto) 0.64 Eos # (Auto) 0.11 Baso # (Auto) 0.03 Immature Gran # (Auto) 0.02 Tear Drop Cells PT 10.4 INR 1.0 APTT 27.9 PTT Ratio 1.0 Sodium 139 Potassium 4.1 Chloride 98 Carbon Dioxide 32 Anion Gap 9 BUN 17 Creatinine 0.91 Est Cr Clr Drug Dosing 54.3 Est GFR ( Amer) 74.1 Est GFR (Non-Af Amer) 63.9 BUN/Creatinine Ratio 18.7 Glucose 136 H Calcium 9.8 Magnesium Total Bilirubin 0.6 AST 25 ALT 25 Alkaline Phosphatase 55 Troponin I High Sens 138.1 H* Total Protein 7.6 Albumin 4.0 Globulin 3.6 Albumin/Globulin Ratio 1.1 Triglycerides Cholesterol LDL Cholesterol, Calc VLDL Cholesterol, Calc HDL Cholesterol Cholesterol/HDL Ratio SARS-CoV-2, RNA, NAAT 02/10/22 02/10/22 02/10/22 19:10 20:00 23:31 WBC RBC Hgb Hct MCV MCH MCHC RDW Std Deviation RDW Coeff of Remi Plt Count MPV Immature Gran % (Auto) Neut % (Auto) Lymph % (Auto) [place] % (Auto) Eos % (Auto) Baso % (Auto) Neut # (Auto) Lymph # (Auto) [place] # (Auto) Eos # (Auto) Baso # (Auto) Immature Gran # (Auto) Tear Drop Cells PT INR APTT PTT Ratio Sodium Potassium Chloride Carbon Dioxide Anion Gap BUN Creatinine Est Cr Clr Drug Dosing Est GFR ( Amer) Est GFR (Non-Af Amer) BUN/Creatinine Ratio Glucose Calcium Magnesium 1.9 Total Bilirubin AST ALT Alkaline Phosphatase Troponin I High Sens 1878.4 H* D Total Protein Albumin Globulin Albumin/Globulin Ratio Triglycerides Cholesterol LDL Cholesterol, Calc VLDL Cholesterol, Calc HDL Cholesterol Cholesterol/HDL Ratio SARS-CoV-2, RNA, NAAT POSITIVE A* 02/11/22 02/11/22 02/11/22 05:28 05:28 05:28 WBC 5.06 RBC 3.91 L Hgb 11.9 L Hct 36.3 MCV 92.8 MCH 30.4 MCHC 32.8 RDW Std Deviation 43.4 RDW Coeff of Remi 12.7 Plt Count 191 MPV 10.8 Immature Gran % (Auto) 0.2 Neut % (Auto) 74.5 Lymph % (Auto) 22.9 [place] % (Auto) 2.0 Eos % (Auto) 0.2 Baso % (Auto) 0.2 Neut # (Auto) 3.77 Lymph # (Auto) 1.16 L [place] # (Auto) 0.10 L Eos # (Auto) 0.01 Baso # (Auto) 0.01 Immature Gran # (Auto) 0.01 Tear Drop Cells 1+ PT INR APTT 82.0 H* PTT Ratio 3.0 Sodium 137 Potassium 4.0 Chloride 103 Carbon Dioxide 26 Anion Gap 8 BUN 14 Creatinine 0.69 Est Cr Clr Drug Dosing 71.6 Est GFR ( Amer) 102.2 Est GFR (Non-Af Amer) 88.2 BUN/Creatinine Ratio 20.3 H Glucose 160 H Calcium 8.4 L Magnesium 1.7 Total Bilirubin 0.6 AST 36 ALT 23 Alkaline Phosphatase 51 Troponin I High Sens 3884.3 H* D Total Protein 6.4 Albumin 3.5 Globulin 2.9 Albumin/Globulin Ratio 1.2 Triglycerides 101 Cholesterol 182 LDL Cholesterol, Calc 130 VLDL Cholesterol, Calc 20 HDL Cholesterol 32 Cholesterol/HDL Ratio 5.7 H SARS-CoV-2, RNA, NAAT Diagnostic Findings chest x-ray obtained the time admission which revealed elevated right hemidiaphragm, chronic. Cardiomegaly but no other acute findings. ECG Additional Comments: Initial EKG demonstrated the suggestion of elevation in the inferior leads without notable reciprocal changes. Repeat EKGs all appear normal. ST segments normal. PG Care Time/CCT Total # of Minutes Spent Total Time Spent with Patient: Total time spent is greater than 50% in coordination of care (as documented) at patient's floor/unit and/or counseling patient: Coding Level of Care Code 34716 Initial Inpt Care Lvl 3 Diagnoses Non-ST elevation (NSTEMI) myocardial infarction I21.4 Asthma J45.909 COVID U07.1
--- NOTE | 2022-02-11 09:46 | XCELERA ---
[id number]
[2022-02-11] MEDS ORDERED: CLOPIDOGREL BISULFATE 300 MG TAB ONE (10:26)
[2022-02-11] MEDS ORDERED: CLOPIDOGREL BISULFATE 300 MG TAB PO STA (10:32)
[2022-02-11] MEDS ORDERED: ALBUTEROL HFA 8 GM INHALER INH PRN (10:33)
[2022-02-11] MEDS ORDERED: MIDAZOLAM HCL 1 MG/ML 2ML VIAL ONE ×2 (10:45→11:37)
[2022-02-11] MEDS ORDERED: HEPARIN (PORCINE) 1000 UNIT/ML 10 ML (CATH LAB USE ONLY) ONE (10:46)
[2022-02-11] MEDS ORDERED: niCARdipine HCL INJ 2.5 MG/ML 10 ML AMP ONE (10:46)
[2022-02-11] MEDS ORDERED: NITROGLYCERIN/D5W 100MCG/ML 20ML SYR ONE ×2 (10:46→11:53)
[2022-02-11] MEDS ORDERED: fentaNYL citrate 100 MCG/2 ML VIAL ONE (10:46)
[2022-02-11] MEDS ORDERED: LIDOCAINE 1% LOCAL 20 ML VIAL ONE (10:50)
--- NOTE | 2022-02-11 10:58 | Pre Anesthesia Assessment ---
Date of Service February 11, 2022 Pre Sedation Assessment Vital Signs Temp Pulse Pulse Resp BP BP Pulse Ox 02/11/22 08:35 61 02/11/22 08:35 02/11/22 07:57 97.7 F 112/62 02/11/22 03:00 98.4 F 74 16 117/61 90 02/10/22 23:07 58 L 02/10/22 22:31 56 L 02/10/22 21:45 103/55 L 02/10/22 21:35 82/48 L 02/10/22 22:02 56 L 16 102/53 L 99 02/10/22 21:01 60 18 113/58 L 98 02/10/22 20:30 61 20 120/63 99 02/10/22 19:58 02/10/22 19:57 75 22 132/60 99 02/10/22 19:06 97.2 F L 87 20 105/71 95 O2 Del Method 02/11/22 08:35 02/11/22 08:35 Room Air 02/11/22 07:57 02/11/22 03:00 Room Air 02/10/22 23:07 02/10/22 22:31 02/10/22 21:45 02/10/22 21:35 02/10/22 22:02 Room Air 02/10/22 21:01 Room Air 02/10/22 20:30 Room Air 02/10/22 19:58 Room Air 02/10/22 19:57 Room Air 02/10/22 19:06 Room Air Cardiovascular RRR, no murmur, no edema Respiratory normal respiratory effort, lungs clear to auscultation Pre-Sedation Airway Assessment Smoking Status: Never smoker Hx Sleep Apnea: No Hx Difficult Intubation: No Short, Thick Neck: No Thyromental Distance: > or= 3.5 Finger Breadths Mallampati Class: III Procedure Planning Contraindications for Sedation: none Current Medications Reviewed: Yes Notes The planned sedation has been discussed with the patient. Informed Consent was obtained. I have identified the patient, determined the appropriateness of sedation and have assessed the patient immediately prior to the procedure. All medicine(s) and interventions are by my order.
[2022-02-11] MEDS ORDERED: PANTOprazole 40 MG in SYRINGE 0 ML IV SCH (11:00)
--- NOTE | 2022-02-11 11:23 | Electrocardiogram Report ---
Test Reason : Blood Pressure : / mmHG Vent. Rate : 062 BPM Atrial Rate : 062 BPM P-R Int : 166 ms QRS Dur : 074 ms QT Int : 442 ms P-R-T Axes : 050 003 025 degrees QTc Int : 448 ms Normal sinus rhythm Low voltage QRS Borderline ECG When compared with ECG of 10-FEB-2022 21:28, No significant change was found Confirmed by Stan Suarez ([id number]) on 02/11/2022 11:23:12 AM Referred By: REFERRED SELF Confirmed By:Cade Suarez
--- NOTE | 2022-02-11 12:48 | Post Anesthesia Assessment ---
Date of Service February 11, 2022 Post Sedation Assessment Vital Signs Temp Pulse Pulse Resp BP BP BP 02/11/22 12:42 97.5 F L 58 L 18 120/63 120/63 02/11/22 08:35 61 02/11/22 08:35 02/11/22 07:57 97.7 F 112/62 02/11/22 03:00 98.4 F 74 16 117/61 02/10/22 23:07 58 L 02/10/22 22:31 56 L 02/10/22 21:45 103/55 L 02/10/22 21:35 82/48 L 02/10/22 22:02 56 L 16 102/53 L 02/10/22 21:01 60 18 113/58 L 02/10/22 20:30 61 20 120/63 02/10/22 19:58 02/10/22 19:57 75 22 132/60 02/10/22 19:06 97.2 F L 87 20 105/71 Pulse Ox O2 Del Method 02/11/22 12:42 95 Room Air 02/11/22 08:35 02/11/22 08:35 Room Air 02/11/22 07:57 02/11/22 03:00 90 Room Air 02/10/22 23:07 02/10/22 22:31 02/10/22 21:45 02/10/22 21:35 02/10/22 22:02 99 Room Air 02/10/22 21:01 98 Room Air 02/10/22 20:30 99 Room Air 02/10/22 19:58 Room Air 02/10/22 19:57 99 Room Air 02/10/22 19:06 95 Room Air Recovery Score Activity: Moves 4 extremities Respiration: Deep Breath/Cough Circulation: +/-20% PreAnes Value Consciousness: Fully Awake Oxygen Saturation: O2 needed for >90% Discharge Sedation Level of Care: Fast Track Phase II Post Sedation Plan On clinical assessment, the patient appears to have tolerated the sedation without complications. Patient is recovering as anticipated. Patient will continue to be monitored by nursing and may be discharged when sedation discharge criteria are met per below protocol. Upon Completions of procedure up to 15 minutes continue every 5 minute vital signs and the P.A.R. score; then discharge to a Phase I or Fast Track to Phase II per the following guidelines: * Discharge Patient to appropriate Phase II area if PAR is 8 or greater or return to pre- procedure baseline. The post - procedure orders will be as directed. * If PAR score is less than 8 or not return to pre-procedure baseline then patient will follow Phase I monitoring till PAR is reached for Phase II. The Phase I may be done in procedure room or may call to secure a Phase I area. * If naloxone or flumazenil are used for reversal, hold in Phase I for continued monitoring from when last reversal dose was given for a minimum of 60 minutes or longer pending the nurse and/or physician discretion of patient condition before discharge to Phase II. Please call the Sedation Physician to re-evaluate and complete post-note for discharge to Phase II area. Do NOT discharge from procedure sedation or Phase 1 until post- sedation evaluation note is complete by procedure /sedation MD Sedation Discharge Instructions to be given to the patient at discharge to home.
[2022-02-11] MEDS: SODIUM CHLORIDE 0.9% 1000ML 1,000 ML IV SCH (12:50)
[2022-02-11] MEDS ORDERED: ONDANSETRON INJ 2 MG/ML 2 ML VIAL IV PRN (12:59)
--- NOTE | 2022-02-11 13:46 | Cardiac Catheterization ---
[facility] Data: Unhairer Cardiac Status Clinical evaluation leading to the procedure CAD Presenation: Non STEMI Anginal Classification: CCS IV Diagnostic Physicians Name: Stan Levi MD Closure Device Recommendations: PCI without planned CABG Cardiac Cath Procedure Full Procedure Date February 11, 2022 Pre-Procedure Diagnosis Pre-Procedure Diagnosis: Non STEMI AUC Score AUC Score: 8 Post-Procedure Diagnosis Post-Procedure Diagnosis: Severe CAD, Successful PCI and Normal Intracardiac Pressures Procedure(s) Performed Procedure(s) Performed: Coronary Angiography, Left Heart Cath and Drug Eluting Stent Para Machine Operator Stan Levi MD Dye Winch Operator(s) Negrito Estimated Blood Loss Estimated Blood Loss: 20 Medication(s) Medication(s): Clopidogrel, Fentanyl, Heparin, Lidocaine 1%, Nicardipine, Nitroglycerin and Versed Summary of Findings Indication: High risk NSTEMI Access: 6 Fr right radial artery Catheters: [place], diagnostic JL 3.5, 5 Fr EBU 3.5 guide Findings: LM -normal caliber, no significant disease LAD -medium caliber, mild diffuse proximal disease, sequential 80% mid LAD lesions, small distal vessel without significant disease. Medium D2 without significant disease. Circumflex -medium caliber, 20-30% ostial stenosis, 99% acute distal subtotal occlusion after OM 3 with NIKKI I distal flow. Small OM1 with 95% ostial stenosis. OM 2, OM 3 without significant disease. RCA -dominant, medium caliber, 30-40% mid segment disease, remainder of vessel without any disease. LVEDP -16 -- PCI of distal circumflex-- Antithrombotic therapy: Heparin, clopidogrel Procedure: Left main cannulated with 5 Fr EBU 3.5 guide Pre-procedure flow NIKKI 1 Explosive Specialist 50 wire passed across lesion into distal PLB Distal circumflex lesion predilated with 2.0 compliant balloon Dilated lesion stented with 2.25 x 12 mm Xience drug-eluting stent Stent post-dilated with stent balloon IC vasodilators administered for spasm Post procedure NIKKI 3 flow, stent well expanded with minimal residual stenosis and no apparent cardiac complications. PCI of mid LAD Explosive Specialist 50 wire redirected from circumflex into LAD and across mid LAD lesions Mid LAD dilated with 2.0 balloon Sequential mid LAD lesions stented with 2.75 x 28 mm Xience drug-eluting stent Stent postdilated with 3.0 NC balloon IC vasodilators administered for spasm Post procedure NIKKI 3 flow, stent well expanded with minimal residual stenosis and no apparent cardiac complications. Arterial Closure: TR band Summary: 1. Severe multivessel coronary artery disease -Acute 99% distal circumflex -Sequential 80% mid LAD lesions 2. Normal intracardiac filling pressure 3. Successful PCI of distal circumflex with single drug-eluting stent (2.25 x 12 mm Xience). 4. Successful PCI of mid LAD with single drug-eluting stent (2.75 x 28 mm Xience; post-dilated with 3.0 NC). Recommendations: To PCU for continued monitoring Loaded with Clopidogrel 600mg Continue dual-antiplatelet therapy for at least 1 year Continue statin, and ASCVD risk factor modification Consult cardiac Rehab Hemodynamics Rest Ao:: 102/55/85 Final Ao: 121/68/90 LV: 125/16 Recommendations Recommendations: PCI without planned CABG Specimens Specimens: None Radiation Exposure (mGy) 3297 Contrast (mls) 120 Anesthesia Moderate 2232-6524 Procedural Complication(s) None Disposition PCU I attest to the content of the Intraoperative Record and any orders documented therein. Any exceptions are noted below. [facility] Card Cath Procedure Codes Cardiac Catheterization Procedure 1: Cardiovascular Cath Procedures: 65732 Coronaries and LHC (+/-LV) Moderate Sedation Procedure 1: Sedation/Anesthesia: 39997 Mod Sedation by the same physician;Init15 Min Child Age 5 & Up Procedure 2: Sedation/Anesthesia: 73877 Mod Sedation by the same physician; Ea [id number] Minutes Stenting Procedure 1: Cardiovascular Stent Procedures: 87379 Perc transluminal revascularization of acute sub/total occl, aMI Procedure 2: Cardiovascular Stent Procedures: 08860 Ea addl branch of a major coronary artery PG Care Time/CCT Total # of Minutes Spent Total Time Spent with Patient: Total time spent is greater than 50% in coordination of care (as documented) at patient's floor/unit and/or counseling patient:
[2022-02-11] MEDS ORDERED: ENOXAPARIN 80 MG/0.8 ML SYR SQ SCH (18:20)
--- NOTE | 2022-02-11 21:07 | Billing Data ---
Date of Service February 11, 2022 Coding Level of Care Code 94174 Initial Inpt Care Lvl 3
[2022-02-12] MEDS: LEVOTHYROXINE SODIUM 100 MCG TABLET PO SCH (05:53)
[2022-02-12 06:40] LABS: Basophils # (auto) 0.01 K/uL (0-0.2); Basophils % (auto) 0.1 %; Eosinophils # (auto) 0.02 K/uL (0-0.50); Eosinophils % (auto) 0.3 %; Hematocrit (blood only) 33.9 % (34.1-44.9); Hemoglobin 11.3 g/dl (12.0-16.0); Immature Granulocytes # (auto) 0.04 K/uL (0.00-0.02); Immature Granulocytes % (auto) 0.5 %; Lymphocytes # (auto) 1.96 K/uL (1.2-3.4); Lymphocytes % (auto) 24.7 %; Mean Corpuscular Hemoglobin 30.4 pg (25.0-34.0); Mean Corpuscular Hgb Conc 33.3 g/dL (32.0-36.0); Mean Corpuscular Volume 91.1 fL (80.0-100.0); Mean Platelet Volume 10.7 fL (9.4-12.3); Monocytes # (auto) 0.42 K/uL (0.24-0.82); Monocytes % (auto) 5.3 %; Neutrophils # (auto) 5.49 K/uL (1.4-6.5); Neutrophils % (auto) 69.1 %; Platelet Count 186 K/uL (130-400); RDW Coefficient of Variation 12.6 % (11.5-14.5); RDW Standard Deviation 42.1 fL (36.4-46.3); Red Blood Count 3.72 M/uL (3.93-5.22); White Blood Count 7.94 K/ul (4.8-10.8)
[2022-02-12 07:11] LABS: BUN Creatinine Ratio 25.8 (10-20); Calcium 8.2 mg/dl (8.5-10.1); Creatinine Clr Calc Pharmacy 76.8 ml/min; Est GFR (African American) 103.7 ml/min; Est GFR (Non-African American) 89.5 ml/min; Potassium 3.6 mmol/L (3.5-5.1)
[2022-02-12 07:14] LABS: Troponin I High Sensitivity 8124.7 pg/ml (0-14)
--- NOTE | 2022-02-12 07:28 | Electrocardiogram Report ---
Test Reason : Blood Pressure : / mmHG Vent. Rate : 062 BPM Atrial Rate : 062 BPM P-R Int : 172 ms QRS Dur : 078 ms QT Int : 450 ms P-R-T Axes : 060 -04 -18 degrees QTc Int : 456 ms Normal sinus rhythm Low voltage QRS Nonspecific ST abnormality Borderline ECG When compared with ECG of 11-FEB-2022 07:53, No significant change was found Confirmed by Stan Suarez ([id number]) on 02/12/2022 7:27:55 AM Referred By: REFERRED SELF Confirmed By:Cade Suarez
--- NOTE | 2022-02-12 07:39 | Electrocardiogram Report ---
Test Reason : Blood Pressure : / mmHG Vent. Rate : 060 BPM Atrial Rate : 060 BPM P-R Int : 160 ms QRS Dur : 074 ms QT Int : 436 ms P-R-T Axes : 042 007 -02 degrees QTc Int : 436 ms Sinus rhythm with Premature atrial complexes Low voltage QRS Nonspecific ST abnormality Borderline ECG When compared with ECG of 11-FEB-2022 07:53, Premature atrial complexes are now Present Confirmed by Stan Suarez ([id number]) on 02/12/2022 7:39:14 AM Referred By: REFERRED SELF Confirmed By:Cade Suarez
[2022-02-12] MEDS: PROPRANOLOL HCL 80 MG TAB PO SCH (07:43)
[2022-02-12] MEDS: MONTELUKAST SODIUM 10 MG TABLET PO SCH (07:43)
[2022-02-12] MEDS: ATORVASTATIN 40 MG TAB PO SCH ×2 (07:43→07:49)
[2022-02-12] MEDS: PANTOprazole 40 MG TAB PO SCH (07:43)
[2022-02-12 07:50] LABS: Estimated Average Glucose 134 mg/dl; Hemoglobin A1C 6.3 % (4.5-5.6)
[2022-02-12] MEDS ORDERED: CLOPIDOGREL BISULFATE 75 MG TAB PO SCH (09:00)
[2022-02-12] MEDS ORDERED: ASPIRIN 81 MG ECTAB PO SCH ×2 (09:00)
--- NOTE | 2022-02-12 10:04 | Discharge Summary ---
Date of Service February 12, 2022 Admission HPI Per Admitting Provider Kary Villa is a 72-year-old female with past medical history of GERD, HTN, asthma, hypothyroidism, depression who arrived at [facility] due to chest pressure of 5 hours duration. She states her pain started around 2 PM today. It was about a 6-8 out of 10 in intensity and located on the left side of her chest. No real radiation. She did not feel short of breath, dizzy, nauseous. Patient does state that over the preceding week she had some mild upper respiratory symptoms including congestion, cough and that her had similar symptoms. He tested positive for COVID. She had not tested positive for COVID thus far but was not surprised to learn of her COVID-positive status on admission. The patient denies any significant cardiac history. Has never had similar chest pain before. At this time denying radiation of pain, sweating, swelling, palpitations, shortness of breath, lightheadedness, headache, nausea, vomiting, abdominal pain. In the ED received aspirin 324 mg x 1, nitroglycerin 0.4 SL x1. EKG initially concerning for ST elevations in inferior leads, though quality was less than ideal. Repeat EKG at time of chest pain recurrence showing no ST elevations. He then received an additional dose of nitroglycerin 0.4 mg SL. Started on heparin drip. Received NSS bolus x1. Troponin mildly elevated to 138. Principal Diagnosis NSTEMI Discharge Exam On the day of discharge the radial access site was without hematoma or ecchymosis. Palpable radial pulse with good perfusion of the right hand. Cardiac examination was normal. No murmurs. Normal rhythm and rate. Lungs were clear to auscultation. Good respiratory effort. No expiratory wheezing. No lower extremity edema Discharge Data Allergies Allergy/AdvReac Type Severity Reaction Status Date / Time No Known Allergies Allergy Verified 02/10/22 19:58 Consultations 02/10/22 20:02 ED Decision to Admit Stat 02/10/22 22:50 Consult Cardiology Routine 02/11/22 13:01 Consult Cardiac Rehabilitation Routine Procedures Performed Operation Date: 02/11/22 10:45 Actual Procedures p Cineradiography w/Routine Exam - Rashel Levi MD p Aspiration/PCI w/SHARON for Stemi - Rashel Levi MD s Drug Eluting Stent each ADDTL Vessel - Rashel Levi MD s Cath, Left with Cors and Vent - Rashel Levi MD Ordered Studies 02/11/22 10:42 CL Cath Imgs for PACS use only Stat Hospital Course (1) Non-ST elevation (NSTEMI) myocardial infarction: (2) Asthma: (3) COVID: Plan 1. NSTEMI: The patient presented with symptoms and objective findings consistent with an acute coronary syndrome. She was initially placed on systemic anticoagulation. She received nitroglycerin and narcotics with good effect. Following morning she underwent coronary angiography which revealed an acute coronary syndrome involving the distal left circumflex. She underwent percutaneous intervention at that site. She is incidentally noted to have seq uential 80% lesions in the left anterior descending which were also treated percutaneously. Echocardiography obtained during her admission revealed preserved LV systolic function without significant valvular heart disease. She was started on standard medical therapy for myocardial infarction to include high-dose atorvastatin and dual anti-platelet therapy. She had been on propranolol as an outpatient for tremors and this was switched to metoprolol succinate. Low-dose lisinopril was started at the time of discharge. 2. Asthma: Curiously on nonselective beta-yomi. She was on a relatively low dose of single daily propranolol which was switched to long-acting metoprolol succinate. 3. COVID-19: No overt symptoms. Unclear relationship between her infection and NSTEMI. Patient did receive 1 dose of dexamethasone at the time of admission. No additional therapy was required as she did not have significant symptoms. She was kept in respiratory isolation throughout her hospitalization. Total Time Total Time Spent Total Time Spent (In Minutes): 20 Discharge Plan Discharge Items Patient Disposition: Home - Self-Care Reason For Visit: CHEST PAIN Discharge Diagnosis: NSTEMI Condition on Discharge: Good Activity: Per Instructions section Activity Comment: No heavy lifting or vigorous use of the right hand and wrist for 7 days. Lifting: No more than 5 pounds Bathing: No limitations Sexual Activity: Wait until after follow-up appointment Exercise/Sports: Wait until after follow-up appointment Driving/Machine Use: Resume 3 days after discharge Non-emergency contact: Medium Cycle Salesperson Call non-emergency contact if: you have any medication questions and your symptoms worsen Follow-up/Referrals: Rashel Levi MD [Physician] - PCP,NO [Physician] - Diet: Heart Healthy Addtl Attending Provider Instructions: Call [facility] tomorrow afternoon if you have not been contacted regarding an appointment Return for routine laboratory blood work on or Saturday of this week. This could be obtained at any amount knee laboratory. Nonfasting. You are COVID-positive 02/10/2022, and asymptomatic from a respiratory standpoint. Per CDC guidelines you should isolate until at least 02/15/2022. If you experience any respiratory symptoms, fever, or chills please contact your primary care physician for additional recommendations. You have been started on new medications as below. It is critically important to take both aspirin and clopidogrel together for 1 year to protect your cardiac stents. You been started on a cholesterol medicine, atorvastatin 80 mg to both lower cholesterol and help prevent further cardiac events. He should have blood work (CMP) performed by your primary care provider within 1 week Pending Studies at Discharge: No Stand-Alone Forms: My [facility] [employer], Smoking Cessation Medications and DC Order Prescriptions: New albuterol sulfate [Ventolin HFA] 90 mcg/actuation Hfa Aerosol Inhaler 2 puff inhalation Q6R PRN (Reason: bronchospasm) Qty: 6.7 3RF clopidogrel 75 mg Tablet 75 mg PO QAM Qty: 90 3RF atorvastatin 40 mg Tablet 80 mg PO QAM Qty: 30 3RF nitroglycerin [Nitrostat] 0.4 mg Tablet, Sublingual 0.4 mg sublingual UD PRN (Reason: chest pain) Qty: 30 3RF aspirin 81 mg Tablet,Delayed Release (Dr/Ec) 81 mg PO QAM Qty: 90 3RF metoprolol succinate 25 mg tablet extended release 24 hr 25 mg PO DAILY Qty: 90 3RF lisinopril 2.5 mg tablet 2.5 mg PO DAILY Qty: 30 3RF Continued omeprazole 40 mg Capsule,Delayed Release(Dr/Ec) 40 mg PO DAILY levothyroxine 100 mcg Tablet 100 mcg PO DAILY sertraline 25 mg Tablet 50 mg PO Q OTHER DAY Rx Instructions: ORDER WRITTEN 25 MG DAILY, PT TAKES 50 MG Q OTHER DAY. triamterene-hydrochlorothiazid 37.5-25 mg Tablet 1 tab PO DAILY zonisamide 25 mg Capsule 50 mg PO HS calcium carbonate-vitamin D3 [Calcium 600 + D(3)] 600 mg(1,500mg) -400 unit Tablet 2 tab PO DAILY magnesium oxide 400 mg magnesium Tablet 800 mg PO DAILY montelukast 10 mg tablet 10 mg PO QAM Discontinued propranolol 40 mg Tablet 120 mg PO QAM Discharge Orders: Discharge Order (Routine); Ordered 02/12/22 Ordered By: Stan Liriano/Other Patient Handouts: Heart Attack Dc, Heart Attack Meds Admission Data Admit Date/Time: 02/10/22 20:43 Attending Provider: Reggie Lewis Admit Provider: Ryder Holliday Primary Care Provider: Kadeem Manrique Other Providers: Paulo Simpson ; Rafael Agosto ; Oli Aguilar ; Jose Carlos Fritz ; William Novoa ; Jm Castro ; Roberto Howard Jr ; Fritz Kaufman ; Eliza Fry ; Cindy Gaona ; Rashel Levi ; Stan Suarez ; Chandana Bose ; Carolina Serna ; Valeria Bolivar ; Fly Olson ; Porter Mancia ; Sushant Helton ; William Ayala V. Other Interventions: Discharge Summary Assessment (RN) Last Done: 02/12/22 09:57 Coding Level of Care Code D/C DAY MANAGEMENT <30 MINS Diagnoses Non-ST elevation (NSTEMI) myocardial infarction I21.4 Asthma J45.909 COVID U07.1
--- NOTE | 2022-02-12 10:09 | Discharge Summary ---
Date of Service February 12, 2022 Admission HPI Per Admitting Provider Kary Villa is a 71-year-old female with past medical history of GERD, HTN, asthma, hypothyroidism, depression who arrived at [facility] due to chest pressure of 5 hours duration. She states her pain started around 2 PM today. It was about a 6-8 out of 10 in intensity and located on the left side of her chest. No real radiation. She did not feel short of breath, dizzy, nauseous. Patient does state that over the preceding week she had some mild upper respiratory symptoms including congestion, cough and that her had similar symptoms. He tested positive for COVID. She had not tested positive for COVID thus far but was not surprised to learn of her COVID-positive status on admission. The patient denies any significant cardiac history. Has never had similar chest pain before. At this time denying radiation of pain, sweating, swelling, palpitations, shortness of breath, lightheadedness, headache, nausea, vomiting, abdominal pain. In the ED received aspirin 324 mg x 1, nitroglycerin 0.4 SL x1. EKG initially concerning for ST elevations in inferior leads, though quality was less than ideal. Repeat EKG at time of chest pain recurrence showing no ST elevations. He then received an additional dose of nitroglycerin 0.4 mg SL. Started on heparin drip. Received NSS bolus x1. Troponin mildly elevated to 138. Principal Diagnosis NSTEMI Discharge Exam General: A&Ox3. NAD. Cooperative. HEENT: Atraumatic, normocephalic. Vision and hearing grossly intact Pulm: CTAB A&P. -wheezes, -rales, -rhonchi. Symmetrical chest rise. No increased work of breathing. No respiratory distress. Cardiac: RRR, -mrg. Radial pulses intact and symmetrical. Abdominal: Nontender, nondistended, soft. BS present. Ext: R wrist with overlying dressiing, no swelling/hematoma. Neurovacsularly intact. Discharge Data Allergies Allergy/AdvReac Type Severity Reaction Status Date / Time No Known Allergies Allergy Verified 02/10/22 19:58 Consultations 02/10/22 20:02 ED Decision to Admit Stat 02/10/22 22:50 Consult Cardiology Routine 02/11/22 13:01 Consult Cardiac Rehabilitation Routine Procedures Performed Operation Date: 02/11/22 10:45 Actual Procedures p Cineradiography w/Routine Exam - Rashel Levi MD p Aspiration/PCI w/SHARON for Stemi - Rashel Levi MD s Drug Eluting Stent each ADDTL Vessel - Rashel Levi MD s Cath, Left with Cors and Vent - Rashel Levi MD Ordered Studies 02/11/22 10:42 CL Cath Imgs for PACS use only Stat Hospital Course (1) Chest pain: Kary Villa is a 71-year-old female with past medical history of GERD, HTN, asthma, hypothyroidism, depression who arrived at [facility] due to chest pressure. Chest Pain s/p cath Chest pain Cath Findings: LM -normal caliber, no significant disease LAD -medium caliber, mild diffuse proximal disease, sequential 80% mid LAD lesions, small distal vessel without significant disease. Medium D2 without significant disease.Circumflex -medium caliber, 20-30% ostial stenosis, 99% acute distal subtotal occlusion after OM 3 with NIKKI I distal flow. Small OM1 with 95% ostial stenosis. OM 2, OM 3 without significant disease.RCA -dominant, medium caliber, 30-40% mid segment disease, remainder of vessel without any disease. Patient does not have prior history of cardiac disease, but left-sided chest pain that was relieved by nitroglycerin as well as EKG findings and elevated troponin make ACS the most likely etiology Initial troponin elevated to 138.[address] abnormalities of inferior leads initially but poor quality tracing repeat EKG without ST elevations Additional troponins trended, elevated with CP recurrence. Heparinized --> cath as noted Received aspirin 324mg in ED Received nitroglycerin 0.4 mg x1 which resolved pain but then had recurrence a few hours later Repeat EKG at that time did not show any ST elevations, pain was relieved with second nitroglycerin dose Continue nitroglycerin as needed for chest pain Morphine as needed ordered if nitroglycerin ineffective - TTE with LVEF normal, normal wall motion - D/c on atorva 80, DAPT with plaavix x1 y ear, lisinopril 2.5, MTP 25 succinate daily COVID-19 Patient does admit to some mild upper respiratory symptoms over the preceding week No shortness of breath, no hypoxia Ordered single dose of dexamethasone 6 mg for adrenal support Isolation precautions Hypertension Propranolol orally placed on hold on admission while n.p.o. Cardiac meds as above (2) COVID: (3) Sleep apnea: (4) Asthma: (5) Hypothyroid: (6) HTN (hypertension): (7) GERD (gastroesophageal reflux disease): Total Time Total Time Spent Total Time Spent (In Minutes): >30 Discharge Plan Discharge Items Patient Disposition: Home - Self-Care Reason For Visit: CHEST PAIN Discharge Diagnosis: NSTEMI Condition on Discharge: Good Activity: Per Instructions section Activity Comment: No heavy lifting or vigorous use of the right hand and wrist for 7 days. Lifting: No more than 5 pounds Bathing: No limitations Sexual Activity: Wait until after follow-up appointment Exercise/Sports: Wait until after follow-up appointment Driving/Machine Use: Resume 3 days after discharge Non-emergency contact: Night Manager Call non-emergency contact if: you have any medication questions and your symptoms worsen Follow-up/Referrals: PCP,NO [Primary Care Provider] - Diet: Heart Healthy Addtl Attending Provider Instructions: Call [facility] tomorrow afternoon if you have not been contacted regarding an appointment Return for routine laboratory blood work on or Saturday of this week. This could be obtained at any amount knee laboratory. Nonfasting. Pending Studies at Discharge: No Stand-Alone Forms: My [facility], Smoking Cessation Medications and DC Order Prescriptions: New albuterol sulfate [Ventolin HFA] 90 mcg/actuation Hfa Aerosol Inhaler 2 puff inhalation Q6R PRN (Reason: bronchospasm) Qty: 6.7 3RF clopidogrel 75 mg Tablet 75 mg PO QAM Qty: 90 3RF atorvastatin 40 mg Tablet 80 mg PO QAM Qty: 30 3RF nitroglycerin [Nitrostat] 0.4 mg Tablet, Sublingual 0.4 mg sublingual UD PRN (Reason: chest pain) Qty: 30 3RF aspirin 81 mg Tablet,Delayed Release (Dr/Ec) 81 mg PO QAM Qty: 90 3RF metoprolol succinate 25 mg tablet extended release 24 hr 25 mg PO DAILY Qty: 90 3RF lisinopril 2.5 mg tablet 2.5 mg PO DAILY Qty: 30 3RF Continued omeprazole 40 mg Capsule,Delayed Release(Dr/Ec) 40 mg PO DAILY levothyroxine 100 mcg Tablet 100 mcg PO DAILY sertraline 25 mg Tablet 50 mg PO Q OTHER DAY Rx Instructions: ORDER WRITTEN 25 MG DAILY, PT TAKES 50 MG Q OTHER DAY. triamterene-hydrochlorothiazid 37.5-25 mg Tablet 1 tab PO DAILY zonisamide 25 mg Capsule 50 mg PO HS calcium carbonate-vitamin D3 [Calcium 600 + D(3)] 600 mg(1,500mg) -400 unit Tablet 2 tab PO DAILY magnesium oxide 400 mg magnesium Tablet 800 mg PO DAILY montelukast 10 mg tablet 10 mg PO QAM Discontinued propranolol 40 mg Tablet 120 mg PO QAM Discharge Orders: Discharge Order (Routine); Ordered 02/12/22 Ordered By: Stan Liriano/Other Patient Handouts: Heart Attack Dc, Heart Attack Meds Admission Data Admit Date/Time: 02/10/22 20:43 Attending Provider: Reggie Lewis Admit Provider: Ryder Holliday Primary Care Provider: PCP,NO Other Providers: Paulo Simpson ; Rafael Agosto ; Oli Aguilar ; Jose Carlos Fritz ; William Novoa ; Jm Castro ; Roberto Howard Jr ; Fritz Kaufman ; Eliza Fry ; Cindy Gaona ; Rashel Levi ; Stan Suarez ; Chandana Bose ; Carolina Serna ; Valeria Bolivar ; Fly Olson ; Porter Mancia ; Sushant Helton ; William Ayala V. Other Interventions: Discharge Summary Assessment (RN) Last Done: 02/12/22 09:57 Coding Level of Care Code D/C DAY MANAGEMENT >30 MINS Diagnoses Chest pain R07.9 COVID U07.1 Sleep apnea G47.30 Asthma J45.909 Hypothyroid E03.9 HTN (hypertension) I10 GERD (gastroesophageal reflux disease) K21.9
== END 2022-02-12 12:17 | disposition home or self-care (01) | DRG 246 ==
LOC: ED 19:01 → 2E 20:43 → SUATTDRO 20:43 → 2E 22:12